=== PATIENT | female | born 1950 | race Caucasian/White ===

== ENCOUNTER 2016-07-08 13:26 | Inpatient (IN) | payer MEDICARE ==
--- NOTE | ~2016-07-08 | CN ---
Consultation Report [facility] [address] [place]. [address] NAME: GAURANG FLORES : 46 STATUS : DIS IN PAT#: [id number] AGE: 66 ADM/REG DATE : 07/08/16 MR#: [id number] REPORT SERV DATE: 07/15/16 DICTATED BY: DATE: REPORT STATUS : Draft TRANSCRIBED BY: MODL DATE: 07/15/16 NEUROLOGY CONSULTATION DATE OF CONSULTATION: 07/15/2016 REASON FOR CONSULT: Acute unresponsiveness. HISTORY OF PRESENT ILLNESS: This is a 66-year-old female who presented to [facility] on 07/08/2016 secondary to shortness of breath as well as chest tightness. The patient subsequent to hospital admission has had multiple issues including cardiopulmonary resuscitation as well as aspiration required intubation. The patient in addition was also noted to have right femoral hematoma requiring exploratory surgery as well as repair. The patient was intubated overnight on 07/14/2016 secondary to aspiration having sedation off on the morning of 07/15/2016, and afterwards was unresponsive with unreactive pupils. No movement of extremities. No response to painful stimulation. Patient prior to the hospitalization was not noted to have any prior illness, also was not noted to have any prior fever, chills, nausea, vomiting, or recent illness. PAST MEDICAL HISTORY: Significant for history of hypertension as well as arrhythmia with loop recorder as well as previous pericardial effusion; type 2 diabetes, insulin-dependent; as well as hyperlipidemia; irritable bowel syndrome; and ulcerative colitis. The patient does have a history of prior CVA as well as chronic kidney disease. The patient was noted to have no tobacco, alcohol, or recreational drug usage. FAMILY HISTORY: Significant for hypertension, diabetes, coronary artery disease. REVIEW OF SYSTEMS: Unable to be obtained secondary to patient's current mental status. ALLERGIES: THE PATIENT WAS NOTED TO HAVE ALLERGY TO MORPHINE, KEFLEX, WELL HEPARIN. MEDICATIONS: Currently consist of Cardizem, Colazal, Diflucan, Dulera, Flonase, Florastor, vancomycin, Levemir, Merrem, MiraLAX, Mycostatin, Neurontin, NovoLog, Protonix, Proventil, Spiriva, vitamin C, and Zocor. The patient is not currently on sedation. PHYSICAL EXAMINATION: VITAL SIGNS: Overnight patient was noted to have vital signs with T-max of 103.4, heart rate of 85-121, respiration of 18 to 27, and blood pressure of 82 to 135 over 41 to 63. GENERAL: The patient is well developed, well nourished, in no acute distress. CARDIOVASCULAR: Regular rate and rhythm. No carotid bruits were otherwise auscultated. PULMONARY: Diffuse rhonchi were auscultated. Coarse breath sound was also auscultated. NEUROLOGIC: Generally, the patient is intubated, not on sedation, was comatose, nonverbal, not following commands. Cranial nerves 2 to 12. Pupil 4 mm and nonreactive. At the time of evaluation, no blink to threat. No corneal reflex was otherwise detected. No grimace to Consultation Report [place] [id number] [facility] [place]. [address] NAME: GAURANG FLORES : 46 STATUS : DIS IN PAT#: [id number] AGE: 66 ADM/REG DATE : 07/08/16 MR#: [id number] REPORT SERV DATE: 07/15/16 DICTATED BY: DATE: REPORT STATUS : Draft TRANSCRIBED BY: MODL DATE: 07/15/16 noxious stimulation. Bilateral jaw with the patient demonstrating no horizontal eye movement or oculocephalic maneuver. The patient demonstrated no gag reflex at the time of evaluation. No deep tendon reflex was obtained in all four extremities with the patient demonstrating no grimace, withdrawal, or posturing to noxious stimulation in all four extremities. Gait and cerebellar examination is unable to be obtained secondary to patient's current mental status. LABORATORY STUDIES: Demonstrate white blood cell count of 0.4, hemoglobin of 9.1, hematocrit of 25.7, platelet count of 31. Sodium 144, potassium 3.4, chloride 108, bicarb 24, BUN of 60, creatinine of 2.66, glucose of 105, calcium of 6.4, magnesium 2.2. The patient procalcitonin level was 84.26. CT scan of the brain demonstrated no acute process. CT angiogram of the brain, head and neck demonstrated no significant stenosis or clot. IMPRESSION: Acute unresponsiveness, etiology is unclear. The patient was noted to have recent intubation secondary to aspiration pneumonia and is currently off sedation since the morning of hospital evaluation. The patient still remains unresponsive despite being off sedation for several hours with the patient noted to have unreactive pupil. CT scan not otherwise demonstrated no acute process. RECOMMENDATION: 1. Hold sedation. 2. EEG pending. 3. We will obtain laboratory study. 4. Further recommendation pending EEG study. [facility]/MODL Jacob Ochoa MD / [id number] CC: MD Haja Young Jr., M.D.
--- NOTE | ~2016-07-08 | OP ---
Record Of Operation [facility] [address] [place]. [address] NAME: GAURANG FLORES : 48 STATUS : DIS IN PAT#: [id number] AGE: 66 ADM/REG DATE : 07/08/16 MR#: [id number] REPORT SERV DATE: 07/26/16 DICTATED BY: BERNARD CALIXTO JR. DATE: 07/26/16 REPORT STATUS : Draft TRANSCRIBED BY: MODL DATE: 07/26/16 DATE OF PROCEDURE: 07/12/2016 ROOM NUMBER: [id number]. REFERRING PHYSICIANS: Dr. Rosy Corrales; Dr. Haja Christina; and Dr. Chad Fowler. INDICATION: [id number] myocardial infarction. ACCESS: Right femoral artery. EQUIPMENT: A 6-Icelandic Marcello left heart catheter 4.0, angled pigtail catheter 4.0. CONTRAST: 90 mL of intravenous Isovue 1.4 minutes for fluoro time 278 mGy. ESTIMATED BLOOD LOSS: 5 mL. DISPOSITION: Cardiac short-stay. 20 mL of 1% subcutaneous Xylocaine to the right femoral artery. COMPLICATIONS: None. PROCEDURE IN DETAIL: After informed consent was obtained, the patient was taken to the cardiac catheterization lab where IV conscious sedation was administered, then local anesthesia to the right femoral artery region. Next after using modified Seldinger technique to place a 6-Icelandic diagnostic sheath which was flushed and secured. A Marcello left catheter 4.0 was advanced over the wire under fluoroscopy to the ostium of the left main coronary artery whereupon cineangiography was performed in the CZECH cranial, CZECH caudal, AP caudal, KNIGHT caudal, KNIGHT cranial, and AP cranial views. This catheter was then exchanged over wire under fluoroscopy for a Marcello right catheter which was advanced to the ostium of the right coronary artery. Cineangiography was performed in the CZECH and AP cranial views. This catheter was then exchanged for an angled pigtail catheter which was advanced over wire under fluoroscopy to the aortic valve and gently prolapsed across the aortic valve into the left ventricle. Cineangiography was performed in the KNIGHT view approximately 36 mL. Hemodynamic tracings were obtained in the body of the left ventricle and then across the aortic valve during pullback in the aorta. After the procedure, hemostasis was achieved with manual pressure. ANGIOGRAPHY: 1. Left main coronary artery normal approximately 3 mm in diameter. 2. Left anterior descending coronary artery: Moderate-sized vessel bifurcating early into a long narrow diffusely diseased first diagonal coronary artery with approximately 75% stenosis in the proximal third. The left anterior descending coronary artery then Record Of Operation [place] [id number] [facility] [place]. [address] NAME: GAURANG FLORES : 46 STATUS : DIS IN PAT#: [id number] AGE: 66 ADM/REG DATE : 07/08/16 MR#: [id number] REPORT SERV DATE: 07/26/16 DICTATED BY: BERNARD CALIXTO JR. DATE: 07/26/16 REPORT STATUS : Draft TRANSCRIBED BY: SONY DATE: 07/26/16 proceeds with a hazy 65% stenosis after the first septal supervisor small appliance assembly. This vessel then proceeds to the crux as a long narrow vessel approximately 2.2 mm to 2.5 mm in diameter to 2 mm at the crux. 3. Circumflex coronary artery: Large, dominant vessel with a 70% to 75% eccentric hazy stenosis after the first obtuse marginal vessel. After the second obtuse marginal vessel, the distal circumflex bifurcates into a posterolateral and left PDA. The left PDA demonstrates an 80% stenosis at its origin. 4. Right coronary artery: Small vessel, nondominant with 50% proximal stenosis after the conus branch. This vessel bifurcates into an acute marginal and distal right RV marginal. VENTRICULOGRAM: Preserved left ventricular systolic function with ejection fraction of approximately 60% with 2+ left ventricular hypertrophy and 1+ mitral insufficiency. Of note, there was significant LVH at the apex with catheter entrapment suggestive of an apical hypertrophic variety. HEMODYNAMICS: Aortic minimum diastolic pressure 56 mmHg. Aortic peak systolic pressure 143 mmHg. Aortic mean pressure 91 mmHg. Left ventricular end-diastolic pressure 17 mmHg. Left ventricular peak systolic pressure 144 mmHg. There is no gradient on withdrawal of the catheter from the left ventricle to the aorta. IMPRESSION: 1. Multivessel equivocal disease in the left dominant vessel. 2. Severe left ventricular hypertrophy with suggestion of hypertrophic variant with severe apical hypertrophy. 3. Elevated left ventricular end-diastolic pressure. PLANS AND RECOMMENDATIONS: Referral for CT surgical consultation. JOSÉ/SONY Bernard Calixto Jr., M.D. / [id number] CC: MD Haja Young Jr., M.D. Cristina Florea, M.D.
--- NOTE | ~2016-07-08 | OP ---
Record Of Operation [facility] [address] [place]. [address] NAME: GAURANG FLORES : 46 STATUS : ADM IN PAT#: [id number] AGE: 66 ADM/REG DATE : 07/08/16 MR#: [id number] REPORT SERV DATE: 07/13/16 DICTATED BY: JASMIN MARX DATE: 07/13/16 REPORT STATUS : Draft TRANSCRIBED BY: MODRobin DATE: 07/13/16 DATE OF PROCEDURE: 07/13/2016 PULMONARY CRITICAL CARE PROCEDURE NOTE PROCEDURE: Insertion of a left femoral triple lumen catheter. CONSENT: Emergent. ANESTHETIC: 1% lidocaine without epi, approximately 2 mL instilled intradermally during the procedure. CONSENT: Emergent due to hypovolemic shock with a systolic blood pressure in the low 60s. PROCEDURE IN DETAIL: As part of code blue effort, a left femoral triple lumen was inserted for better venous access. The patient had a 22-gauge in her arm, which was infiltrated. She was prepped and draped in sterile fashion using maximal sterile barriers including hat, gown, mask with eye protection, gloves and sterile drape. Chlorhexidine was used to sensitize the area overlying the left femoral vein and a finder needle was used to aspirate very dark red blood. Subsequently, a guidewire was inserted to a depth of approximately 20 cm and sequential dilator was passed over the guidewire after making a small karolyn with an 11 blade scalpel using Seldinger technique and finally 20 cm Arrow Blue catheter was passed over the guidewire and had excellent blood aspiration and flush all three ports, which were covered with sterile caps. Line was secured to the skin with suture material and all sharps were disposed off in the appropriate area. ESTIMATED BLOOD LOSS: Less than 1 mL. IMMEDIATE COMPLICATIONS: None. Please see separate documentation for additional critical care provided to Ms Flores this morning. JIMMIE/SONY Jasmin Marx MD / [id number] CC: Jose Chan Jr, MD Charles Crump Jr., M.D.
--- NOTE | ~2016-07-08 | OP ---
Record Of Operation [facility] [address] [place]. [address] NAME: GAURANG FLORES : 46 STATUS : DIS IN PAT#: [id number] AGE: 66 ADM/REG DATE : 07/08/16 MR#: [id number] REPORT SERV DATE: 07/15/16 DICTATED BY: COLE CAT DATE: 07/15/16 REPORT STATUS : Draft TRANSCRIBED BY: MODL DATE: 07/15/16 DATE OF PROCEDURE: 07/15/2016 PROCEDURE PERFORMED: Right IJ Vas-Cath placement under ultrasound guidance. ANESTHETIC: 1% local. PREPROCEDURE DIAGNOSES: Sepsis and eorwg-cz-ahtwhhf renal failure. POSTPROCEDURE DIAGNOSES: Sepsis and ldicm-qa-xhbzral renal failure. PROCEDURE PERFORMED: As above. BLOOD LOSS: Minimal. COMPLICATIONS: None. DESCRIPTION OF PROCEDURE: The patient was in the ICU in supine position in her ICU bed. The right neck was prepped and draped in a sterile fashion. A time-out was performed; identified the correct patient, procedure, and site. We began by using ultrasound to identify the right IJ vein that was compressible and free of thrombus. We anesthetized the skin and then accessed the vein under ultrasound guidance. Once we had access, wire was passed down into the cardiac chambers. The needle was removed. We widened the entry site with 11-blade scalpel. We dilated the entry site using percutaneous dilators. We then advanced the 15 cm long PermCath over the wire into position, after which we removed the wire and dilator. The ports were aspirated and flushed with ease, end caps were placed. The catheter was secured to the skin using interrupted silk suture. Sterile dressing was applied. The patient tolerated the procedure well. She was left in the ICU in critical condition. TONY/SONY Cole Cat MD / [id number] CC: MD Haja Young Jr., M.D.
--- NOTE | ~2016-07-08 | OP ---
Record Of Operation [facility] [address] [place] [address] NAME: GAURANG FLORES : 46 STATUS : ADM IN PAT#: [id number] AGE: 66 ADM/REG DATE : 07/08/16 MR#: [id number] REPORT SERV DATE: 07/15/16 DICTATED BY: ANISH BUCKLEY DATE: 07/15/16 REPORT STATUS : Draft TRANSCRIBED BY: MODL DATE: 07/15/16 DATE OF PROCEDURE: 07/15/2016 PROCEDURE: Intubation. REASON: Hypoxic respiratory failure. The patient is a full code. PROCEDURE: The patient was pre-oxygenated with 100% oxygen and monitored closely during intubation. She got a total 3 mL of Diprivan and 20 mg of IV etomidate. A GlideScope was used with a #3 blade. Vocal cords were well visualized and appeared normal. #7.5 endotracheal tube was placed on the first attempt without any difficulty. O2 saturation maintained above 92%. Bilateral breath sounds were heard and CO2 sensor changed appropriate color from blue to yellow. /MODL Anish Buckley M.D. / [id number] CC: Haja Christina Jr., M.D.
--- NOTE | ~2016-07-08 | CN ---
Consultation Report [facility] [address] [place]. [address] NAME: GAURANG FLORES : 46 STATUS : ADM IN PAT#: [id number] AGE: 66 ADM/REG DATE : 07/08/16 MR#: [id number] REPORT SERV DATE: 07/13/16 DICTATED BY: JASMIN MARX DATE: 07/13/16 REPORT STATUS : Draft TRANSCRIBED BY: MODL DATE: 07/13/16 PULMONARY CRITICAL CARE MEDICINE DOCUMENTATION ON CODE BLUE. DATE OF CONSULTATION: This documentation will cover both Code Blue event as well as subsequent critical care time provided to Gaurang Flores on the morning of 07/13/2016. Approximately 6:50 a.m., nursing staff on the [address] [place] [address] Telemetry Unit noted Ms. Flores in 5109 to be minimally responsive with apneic respirations and marked pallor. She had undergone a left heart cath the previous day, and after careful inspection, she was noted to have a large hematoma at the right femoral access site. Pressure was held and a Code Blue was called as nursing staff initially thought that she was beginning to jolynn down. Code team arrived a short time later and actually noted her to have a pulse, although she was markedly hypotensive with her initial noninvasive blood pressure cycled at 63 systolic with marked tachycardia. She had marked conjunctival pallor on my examination and was fairly lethargic. She only had a 22-gauge peripheral IV in her right arm, which appeared to be infiltrated and thus the decision to insert a triple-lumen catheter under emergent conditions for better venous access and infusion of blood products and fluids. Please see my separate dictation for procedure details. After venous access was obtained, normal saline boluses and packed red blood cells were infused and she did improve her blood pressure to the 130 systolic with better skin color and more alertness. She was able to converse and answer some questions. She was transferred to CCU bed 13 and was started on Levophed infusion for maintenance of blood pressure. She remained clinically stable for approximately one hour following transfer to the CCU around 7:30 a.m., and around 8:30 a.m., was contacted again by nursing staff to assess for worsening encephalopathy, worsening lethargy, and return of her hypotension at this time in the mid 80s systolic. She was also more pale and her hematoma was enlarging. Dr. Phipps from Vascular Surgery was consulted as more fluid and blood were administered. A kwxqe-zz-uhoe ultrasound of her heart showed hyperdynamic LV with limited ventricular filling bilaterally and her IVC was completely collapsed. Her jugular veins were also noted to be very collapsible with her respiratory cycle. She was ultimately taken to the operating room with Dr. Phipps for exploration and potential control of bleeding from the femoral access site on the right and Dr. Calixto was made aware of all proceedings. She did receive protamine this morning and her heparin drip was held prior to her transfer to the CCU as part of her code event. Her family including her daughter and son-in-law were updated following the events of the morning and we will continue to follow her closely in the CCU. JIMMIE/SONY Jasmin Marx MD Consultation Report [address] [address] NAME: GAURANG FLORES : 46 STATUS : ADM IN PAT#: [id number] AGE: 66 ADM/REG DATE : 07/08/16 MR#: [id number] REPORT SERV DATE: 07/13/16 DICTATED BY: JASMIN MARX DATE: 07/13/16 REPORT STATUS : Draft TRANSCRIBED BY: SONY DATE: 07/13/16 / [id number] CC: Jose Chan Jr, MD Charles Crump Jr., M.D.
--- NOTE | ~2016-07-08 | CN ---
Consultation Report [facility] [address] [place]. [address] NAME: GAURANG FLORES : 46 STATUS : ADM IN PAT#: [id number] AGE: 66 ADM/REG DATE : 07/08/16 MR#: [id number] REPORT SERV DATE: 07/12/16 DICTATED BY: CHAD MUÑOZ DATE: 07/12/16 REPORT STATUS : Draft TRANSCRIBED BY: MODL DATE: 07/12/16 CONSULTATION NOTE DATE OF CONSULTATION: 07/12/2016 REASON FOR CONSULTATION: Three-vessel coronary artery disease, consideration for urgent coronary artery bypass grafting in the context of unstable anginal symptoms. CHIEF COMPLAINT: Chest pain, shortness of breath. HISTORY OF PRESENT ILLNESS: This is a 66-year-old female with complex medical history including severe obstructive sleep apnea, rheumatoid arthritis, and Crohn's, for which she takes immunosuppressive therapy, three prior CVAs, pulmonary interstitial fibrosis, managed by Javier Granger MD, insulin-dependent diabetes mellitus, pericardial effusion, that is chronic, pulmonary nodules and masses. She reports, recent progressive fatigue and chest tightness or pressure, as well as breathlessness and dyspnea on exertion. This has gradually worsened and at the end of last week, she went to see her primary care provider, Dr. Christina. At that time, his nurse practitioner, referred her to the emergency department, and she underwent further evaluation for her symptoms. Her EKG showed normal sinus rhythm. Troponin I was not elevated at 0.02. She had myocardial perfusion imaging and experienced 7/10 chest pain with this with decline in her EF to 22% and this was graded a high risk study showing anterolateral and apical reversible defects. She saw Dr. Fowler, and today underwent coronary arteriogram by Dr. Calixto, which demonstrated significant flow-limiting coronary artery disease in the right coronary artery with distal chronic total occlusion, and significant circumflex and left anterior descending coronary artery stenosis as well. We were asked to see for consideration of urgent coronary artery bypass grafting and this was discussed with the patient and her family present in the room today. PRIOR MEDICAL HISTORY: Significant for chronic kidney disease, stage 2-3, interstitial fibrosis, insulin-dependent diabetes mellitus, prior CVA x3, pericardial effusion, rheumatoid arthritis, Crohn's disease, severe obstructive sleep apnea, hypertension, hyperlipidemia, and lung nodules or masses. PRIOR SURGICAL HISTORY: Significant for previous exploratory laparotomy and colostomy with followup reversal of colostomy. She has also had prior abdominal hernia repair, cholecystectomy, partial hysterectomy, previous right shoulder surgery, implantable loop recorder placement, skin cancer excision, UPPP for sleep apnea in 1997, EGDs, and colonoscopies. ALLERGIES: SIGNIFICANT FOR MORPHINE, WHICH CAUSES THROAT SWELLING, SHE GETS THRUSH AFTER TAKING BACTRIM OR SULFA AND ALSO EXPERIENCES THIS WITH KEFLEX. HOME MEDICATIONS: Significant for albuterol inhaler, Fosamax, aspirin, Astepro nasal spray, B complex with C tablets, Colazal tablets t.i.d., calcium with vitamin D, vitamin D tablets, Consultation Report [place] [id number] [facility] [place]. [address] NAME: GAURANG FLORES : 46 STATUS : ADM IN [facility]#: [id number] AGE: 66 ADM/REG DATE : 07/08/16 MR#: [id number] REPORT SERV DATE: 07/12/16 DICTATED BY: CHAD MUÑOZ DATE: 07/12/16 REPORT STATUS : Draft TRANSCRIBED BY: SONY DATE: 07/12/16 coenzyme Q10, vitamin B12, diclofenac topical gel, diltiazem 180 mg daily, Raeann 180 daily, Flonase nasal spray daily, fluticasone/salmeterol 500/50 inhaled twice daily, folic acid, furosemide, gabapentin, hydrochlorothiazide, hydroxychloroquine, insulin, losartan/hydrochlorothiazide, multivitamins, omega-3 fatty acids, pantoprazole, prednisone 10 mg daily, Zantac 300 every evening, Rituxan IV infusion, Zocor, tramadol, Incruse Ellipta inhaler, Phazyme, IBgard capsule, probiotics, and OptiFlex. SOCIAL HISTORY: She is , denies any use of tobacco or alcohol or illicit drugs. FAMILY HISTORY: Significant for hypertension, diabetes, and coronary artery disease. REVIEW OF SYSTEMS: GENERAL: Positive for exercise intolerance, diminished energy, and easy fatigability. She denies any recent fevers, chills, or night sweats. RESPIRATORY: Positive for shortness of breath. Negative for cough or wheezing or chronic cough. Negative for hemoptysis. CV: Negative for palpitations. Positive for chest tightness and pressure. Positive for heart murmur. GI: Positive for gastroesophageal reflux disease and as above. : Positive for chronic kidney disease and prior urinary tract infections. She is followed by Dr. Fu for her chronic kidney disease. MUSCULOSKELETAL: Followed by Dr. Burrows for her rheumatoid arthritis and osteoarthritis. NEURO: Positive for prior strokes with residual difficulty with memory and mild left-sided weakness that resolved with inpatient rehabilitation. HEME/ONC: As above. No history of blood clots. She does bruise easily secondary to her chronic steroid use. ENDOCRINE: Positive for insulin-dependent diabetes mellitus. INTEGUMENTARY: Positive for easy bruising, hair loss. Otherwise, negative or as above. PHYSICAL EXAMINATION: GENERAL: This is a very pleasant, 66-year-old female with cushingoid appearance. Her height is 154.94 cm, weight 62.73 kg. VITAL SIGNS: Blood pressure 153/70, temperature 98.4, pulse 61, respirations 18, saturation 98% on room air. HEENT: Normocephalic, atraumatic. She has fine textured hair. Pupils are equal, round, reactive to light and accommodation, sclerae clear, conjunctivae pink. Oral and buccal mucosa pink and moist with whitish plaques on the tongue. Mallampati class 3 airway. NECK: Supple. No restricted range of motion, she has right carotid bruit versus radiated murmur. No jugular venous distention. CHEST: She has Velcro crackles bilaterally to auscultation posteriorly and in the bases. No rub. Mild cervicothoracic kyphosis. CV: Regular rate and rhythm with aortic systolic murmur. She has palpable and symmetric central and peripheral pulses, no clubbing or cyanosis. She has 2+ pitting edema of the lower extremities that extends upward past her knees. ABDOMEN: Soft, obese, striated, nontender. She has normoactive bowel sounds. No Consultation Report [address] [place]. [address] NAME: GAURANG FLORES : 46 STATUS : ADM IN [facility]#: [id number] AGE: 66 ADM/REG DATE : 07/08/16 MR#: [id number] REPORT SERV DATE: 07/12/16 DICTATED BY: CHAD MUÑOZ DATE: 07/12/16 REPORT STATUS : Draft TRANSCRIBED BY: MODL DATE: 07/12/16 hepatosplenomegaly. /RECTAL: Declined. MUSCULOSKELETAL: Mild kyphosis. No scoliosis. No asymmetry and Gonzalo's nodes of the phalanges are noted. NEUROLOGIC: She is alert and oriented to day, date, place, and situation. Speech is clear, fluent, without focal neurologic deficits. No tremors. She ambulates without assistance. SKIN, HAIR, AND NAILS: She has significant ecchymoses and purpura over both hands and arms, purpuric spots over the anterior chest and annular pigmented lesions of the lower extremities. DATA: Her coronary arteriogram today showed 3-vessel flow-limiting coronary artery disease. Echocardiogram indicated mild aortic stenosis, aortic sclerosis, no other significant valvulopathy. Her ejection fraction was 60% by echo. There was moderate pericardial effusion that was loculated posterolaterally. EKG showed sinus rhythm. Her hemoglobin A1c was 6.1. Prior MRAs and carotid ultrasounds did not show any significant carotid disease. Her current labs, sodium is 134, potassium 3.6, chloride 99, CO2 of 23, BUN 66, creatinine 1.5 and nonfasting glucose 217. Her total cholesterol was elevated at 222, HDL was 62, LDL elevated at 107, triglycerides elevated at 265. She had recent voided urinalysis that was significant for moderate leukocyte esterase and bacteria in the urine. There was glucosuria. Her CBC does not show any elevated white count, she does have a thrombocytopenia of 121, hemoglobin is 10.2, hematocrit 28.9%. IMPRESSION: Three-vessel flow-limiting coronary artery disease in a 66-year-old female with complex medical history and comorbidities. We talked with her and her today about possible coronary artery bypass grafting, indications, benefits, and serious risks, which include, but are not limited to, things such as bleeding, need for blood or blood product transfusion and their attendant risks, damage to the kidneys including kidney failure and dialysis, damage to the liver, the lungs, heart attack, stroke, abnormal heart rhythm, infection, mediastinitis, and even . Using Society of Thoracic Surgeons database, risk of mortality is predicted at 4.738%, morbidity or mortality of 31.959% which are elevated. This was discussed with the patient and family today and she indicates her understanding. Tentative plan is for surgical revascularization later this week. We appreciate the opportunity to participate in this pleasant lady's care. JUAN FRANCISCO/SONY Chad Muñoz NBing / [id number] CC: Charisse Eisenberg M.D. Consultation Report [address] [place]. [address] NAME: GAURANG FLORES JOE : 46 STATUS : ADM IN PAT#: [id number] AGE: 66 ADM/REG DATE : 07/08/16 MR#: [id number] REPORT SERV DATE: 07/12/16 DICTATED BY: CHAD MUÑOZ DATE: 07/12/16 REPORT STATUS : Draft TRANSCRIBED BY: MODL DATE: 07/12/16 Haja Christina Jr., M.D.
--- NOTE | ~2016-07-08 | OP ---
Record Of Operation [facility] [address] [place]. [address] NAME: GAURANG FLORES : 46 STATUS : ADM IN PAT#: [id number] AGE: 66 ADM/REG DATE : 07/08/16 MR#: [id number] REPORT SERV DATE: 07/13/16 DICTATED BY: CHAD BROWN DATE: 07/13/16 REPORT STATUS : Draft TRANSCRIBED BY: MODL DATE: 07/13/16 DATE OF PROCEDURE: 07/13/2016 PREOPERATIVE DIAGNOSIS: Status post right cardiac cath with two episodes of hypotension the morning of surgery with ecchymosis of the right thigh. POSTOPERATIVE DIAGNOSIS: Status post right cardiac cath with two episodes of hypotension the morning of surgery with ecchymosis of the right thigh. FINDINGS: Moderate-sized hematoma of the right groin with bleeding from the femoral stick site with no evidence of retroperitoneal hematoma. SURGERY PERFORMED: Exploration right femoral artery and primary repair using 5-0 Prolene suture. DESCRIPTION OF PROCEDURE: The patient was brought to the operating suite emergently after having two episodes of major hypotension the morning of surgery. The first one occurring two or three hours before, which she responded to fluids and resuscitation. The patient was then stable followed by another episode of significant hypotension. After the second episode and resuscitation, she was brought to the operating suite. She was found to have a FemoStop on the femoral artery. There was a large hematoma in the groin. She was resuscitated and then placed under general endotracheal anesthesia. Right groin prepped and draped in sterile fashion. A vertical incision made over the femoral vessels, dissection carried down through the skin and subcutaneous tissue. The femoral artery encircled at the inguinal ligament distally, dissection carried out down to the stick site that was bleeding from the arterial portion. This was actually in the proximal SFA. This was isolated with vessel loops and then repaired using interrupted 5-0 Prolene suture. Exploration of the area revealed a hematoma in the thigh, which was moderate at best. Dissection underneath the inguinal ligament showed no extension into the retroperitoneal space as suspected preoperatively. With this finding, a NAYE drain was placed into the wound. The wound was then closed with 2-0 and 3-0 Vicryl, and skin closed with latoya. Dry dressings were applied. Due to her blood transfusion requirements, it was felt that there was possibly some sort of intraperitoneal bleeding. She was on a regular operating room table so not conducive to arteriography. Therefore she was taken to CT scan while under general anesthesia, where she had a CT of the abdomen and pelvis with contrast. The CT scan showing no evidence of intraabdominal or pelvic bleeding. Therefore the patient was then taken to the intensive care unit to monitor and for extubation. The estimated blood loss of this operation is 100 mL. She was stable during the surgery and afterwards, and again went back to the CCU under stable condition. MG/MODL Chad Brown M.D. Record Of Operation [address] [address] NAME: GAURANG FLORES : 46 STATUS : ADM IN [facility]#: [id number] AGE: 66 ADM/REG DATE : 07/08/16 MR#: [id number] REPORT SERV DATE: 07/13/16 DICTATED BY: CHAD BROWN DATE: 07/13/16 REPORT STATUS : Draft TRANSCRIBED BY: SONY DATE: 07/13/16 / [id number] CC: Jose Chan Jr, MD Charles Crump Jr., M.D.
--- NOTE | ~2016-07-08 | EEG ---
Electroencephalogram [facility] [address] [place]. [address] NAME: GAURANG FLORES : 46 STATUS : DIS IN PAT#: [id number] AGE: 66 ADM/REG DATE : 07/08/16 MR#: [id number] REPORT SERV DATE: 07/15/16 DICTATED BY: DATE: REPORT STATUS : Draft TRANSCRIBED BY: MODL DATE: 07/15/16 NEUROLOGY EEG REPORT CLINICAL INDICATIONS: Comatose state. DESCRIPTION: This EEG was obtained using 10/20 electrode placement system. During the EEG study, patient was noted to have generalized slowing with periods of attenuated background, followed by periods of activity with predominant occipital rhythm of roughly 3-4 hertz. The patient was noted to have photic stimulation, but no driving response. Hyperventilation was not performed secondary to the patient's intubated status. The alternating attenuated background followed by activity was noticed throughout the EEG study. The patient remains comatosed during the entire EEG study. No clear electrographic seizure was otherwise noted during the EEG study. No clear focal abnormality was noted during the EEG study. INTERPRETATION: This EEG study obtained entirely during comatose state may be considered abnormal secondary to the presence of generalized slowing as well as alternating periods of attenuated background activity followed by brain activity concerning for possible burst suppression type of pattern, concerning for severe metabolic encephalopathy versus toxic or medication-induced encephalopathy versus generalized cerebral insults or injury. Clinical correlation is recommended. [facility]/MODL Jacob Ochoa MD / [id number] CC: MD Haja Young Jr., M.D.
--- NOTE | ~2016-07-08 | HP ---
History And Physical [place] [address] [place]. [address] NAME: GAURANG FLORES : 46 STATUS : ADM IN PAT#: [id number] AGE: 66 ADM/REG DATE : 07/08/16 MR#: [id number] REPORT SERV DATE: 07/08/16 DICTATED BY: ADRIENNE ELLISON DATE: 07/08/16 REPORT STATUS : Draft TRANSCRIBED BY: MODL DATE: 07/08/16 DATE OF ADMISSION: 07/08/2016 CHIEF COMPLAINT: Shortness of breath and chest tightness. HISTORY OF PRESENT ILLNESS: Obtained from the patient, the patient's family present at bedside and emergency room documents. Also, prior medical records available to us were thoroughly reviewed. According to the information available, the patient is a pleasant 66- year-old white woman with a complex past medical history, which includes pulmonary fibrosis, diabetes type 2, ulcerative colitis and chronic kidney disease, who presents to the emergency room after being seen in primary care provider's office with the above complaints of increasing shortness of breath and chest tightness/chest pain. The patient stated that she has been feeling short of breath for a week with increased dyspnea on exertion and increased pedal edema. The pedal edema, actually started several months ago, when she stated that some of her medications were changed at the nephrology's office. Nevertheless, for the last three to four days, she started experiencing chest tightness/heaviness in the upper part of the chest, precordial. No radiation, with increasing dry cough and increasing fatigue, especially with minimal exertion. The cough was nonproductive and dry. No fever or chills reported. No contact with sick person reported. She was apparently treated recently for urinary tract infection with antibiotics by her primary care provider, and she states that she had thrush since finishing the antibiotic several days ago. She has not had any new change in her prednisone doses or schedule. In the emergency room, the patient was investigated, was noticed to be in mild respiratory distress due to shortness of breath with benign cardiovascular markers and EKG. Due to her presentation and known medical history, she was referred to the hospitalist service for further management and evaluation. PAST MEDICAL HISTORY: As above. Significant for hypertension. Significant for reported arrhythmia with a loop recorder monitor which she wears for several years now, but apparently no significant documented malignant arrhythmias noticed. History of prior reported pericardial effusion by prior CT scan done during prior admission. Uncertain if any other followup was performed since. History of diabetes type 2, insulin dependent. History of hyperlipidemia. History of irritable bowel syndrome/ulcerative colitis. History of GERD. History of prior cerebrovascular disease with prior CVA x3. History of chronic steroid usage. History of chronic immunosuppressive therapy. History of apparent chronic kidney disease, stage 2 to stage 3, followed up by Nephrology, Dr. Fu. PAST SURGICAL HISTORY: Significant for colon surgery due to apparent ruptured colon with a colostomy and then reversal of colostomy. History of abdominal hernia repair afterwards. History of cholecystectomy, partial hysterectomy, right shoulder surgery, loop recorder monitor placement. History of several skin cancer removal. History of UPPP for sleep apnea in 1997. History of several EGDs and colonoscopies. SOCIAL HISTORY: She is , lives with her family. Denies tobacco abuse. Denies alcohol abuse. Denies illicit recreational drug abuse. FAMILY HISTORY: Significant for hypertension, diabetes, and coronary artery disease. History And Physical [address] [address] NAME: GAURANG FLORES : 46 STATUS : ADM IN [facility]#: [id number] AGE: 66 ADM/REG DATE : 07/08/16 MR#: [id number] REPORT SERV DATE: 07/08/16 DICTATED BY: ADIRENNE ELLISON DATE: 07/08/16 REPORT STATUS : Draft TRANSCRIBED BY: SONY DATE: 07/08/16 REVIEW OF SYSTEMS: As per H and P, otherwise negative in all review of systems. Please note, a comprehensive review of system was obtained and pertinent positives are including in the H and P. PHYSICAL EXAMINATION: GENERAL: Pleasant, co-operant, but pale, in mild distress due to shortness of breath. VITAL SIGNS: Upon arrival in the emergency room, showed blood pressure 139/66, pulse 71, respiratory rate 18, temperature 98.7, oxygen saturation 97% on room air. HEENT: Pupils equal, round, and reactive to light. Extraocular movements intact. Throat, mild erythema with oral thrush present. No signs of tenderness. Atraumatic. NECK: Supple. No JVD. No bruits. No thyromegaly. No lymph nodes. LUNGS: Bilateral air entry with bibasilar crackles. A few scattered rales bilateral. No significant wheezing noticed. HEART: Positive S1, S2. Regular rate and rhythm. Positive mitral regurgitation. Murmur at the apex. PMI nondisplaced by palpation. ABDOMEN: Positive bowel sounds. Soft, nontender. No guarding. No hepatosplenomegaly. EXTREMITIES: Decreased range of motion. Osteoarthritic changes. No clubbing, no cyanosis. +2 pitting edema bilaterally up to the knees. No calf tenderness noticed. +1 pulses. NEUROLOGIC: Alert and oriented x3. Grossly nonfocal. Cranial nerves 2 through 12 grossly intact. Motor strength 5/5, symmetrical bilaterally. Deep tendon reflexes 2/2, symmetrical bilaterally. BACK: With decreased range of motion. No focal localized tenderness. No CVA tenderness. SKIN: No bruising or rashes. No lacerations. SIGNIFICANT LABORATORY DATA: Chest x-ray (personal reading) showed chronic interstitial changes. No acute infiltrate. EKG (personal reading) showed normal sinus rhythm at 66 beats per minute. No acute ST elevation. Basically a normal EKG. Sodium 139, potassium 3.6, chloride 101, bicarb 33, BUN 47, creatinine 1.48, and glucose 145. White cell count 6, hemoglobin 12 with a platelet count 99. BNP 59 which is within normal limits. Urinalysis negative for signs of infection. Troponin I less than 0.02. Liver function tests basically within normal limits. ASSESSMENT AND PLAN AND PROBLEM LIST: The patient is a pleasant 66-year-old white woman, admitted with dyspnea on exertion, acute kidney injury. IMPRESSION: 1. Pulmonary with:. a. Dyspnea on exertion. Likely multifactorial. Possible pulmonary etiology. Doubt infectious. Possible cardiac etiology. We are going to try to obtain the records from patient's manufacturing engineer machining Dr. Javier Granger and we are going to continue bronchodilator therapy, oxygen supplementation. Provide stress dose of steroids considering possible flare up of her known pulmonary fibrosis, possible chronic obstructive pulmonary disease. History And Physical [address] [address] NAME: GAURANG FLORES : 46 STATUS : ADM IN [facility]#: [id number] AGE: 66 ADM/REG DATE : 07/08/16 MR#: [id number] REPORT SERV DATE: 07/08/16 DICTATED BY: ADRIENNE ELLISON DATE: 07/08/16 REPORT STATUS : Draft TRANSCRIBED BY: SONY DATE: 07/08/16 b. Pulmonary fibrosis. c. Obstructive sleep apnea. d. Chronic obstructive pulmonary disease. 2. Acute kidney injury on chronic kidney disease, stage 2. Likely close to her baseline. We are going to obtain a Nephrology consultation as patient states that some of her symptoms started after the medications were changed by Dr. Fu, Nephrology. Strict I's and O's and daily weights. Consider Calvin catheter placement. 3. Cardiovascular with:. a. Chest pain/chest tightness. b. Hypertension, essential hypertension. c. Bilateral lower extremity edema. For all the above, we are going to continue to rule out and process CK and troponin I, continue to monitor EKG. We will obtain a 2D echo and obtain Cardiology consultation with Dr. Malcolm Rivas, Diagnostic Cardiology, her licensed mortgage loan officer. 4. Thrombocytopenia, apparently a new finding. Continue to monitor as her platelets were within normal limits before. Consider to hold Plaquenil at this moment. 5. Endocrinologic problem with:. a. Diabetes type 2, insulin dependent with complications. Continue Levemir, long-acting insulin and sliding scale, diabetic education and check a hemoglobin A1c. b. Hyperlipidemia, mixed type. We are going to continue statin and low cholesterol diet. 6. GI problem or inflammatory bowel diseases with ulcerative colitis. We are going to continue the patient's medications, and we are going to use a small dose and a short course of possible IV steroids. 7. Gastroesophageal reflux disease without esophagitis. Continue dietary changes, and continue PPI and Zantac. 8. Cerebrovascular disease, status post prior cerebrovascular accidents, transient ischemic attacks, and tremors. Continue to monitor for now. 9. Oral thrush. Diflucan and nystatin, swish and swallow. 10.Chronic steroid usage. 11.Osteoarthritis, osteoporosis, deconditioning and debilitation. Continue medications and physical therapy evaluation. PROGNOSIS: Moderately good for this admission. Discussed with patient and patient's family. Questions were answered in full. Please note also the written discharge note and discharge orders and instructions. [facility]/SONY Adrienne Ellison M.D. / [id number] CC: History And Physical [address] [place]. [address] NAME: GAURANG FLORES : 46 STATUS : ADM IN [facility]#: [id number] AGE: 66 ADM/REG DATE : 07/08/16 MR#: [id number] REPORT SERV DATE: 07/08/16 DICTATED BY: ADRIENNE ELLISON DATE: 07/08/16 REPORT STATUS : Draft TRANSCRIBED BY: MODL DATE: 07/08/16 Juice Mcclellan Jr., M.D. Allan Chastain, MD Daniel Smith, M.D.
--- NOTE | ~2016-07-08 | CN ---
Consultation Report [facility] [address] [place]. [address] NAME: GAURANG FLORES : 46 STATUS : DIS IN PAT#: [id number] AGE: 66 ADM/REG DATE : 07/08/16 MR#: [id number] REPORT SERV DATE: 07/15/16 DICTATED BY: JASMIN MARX DATE: 07/15/16 REPORT STATUS : Draft TRANSCRIBED BY: MODL DATE: 07/15/16 DATE OF CONSULTATION: ADDENDUM: CRITICAL CARE ADDITIONAL DOCUMENTATION This is an addendum to my daily progress note, which was read by nurse, Alexander Louis. After developing large volume aspiration event overnight and being intubated by Dr. Buckley with development of worsening septic shock. Mrs. lFores continued to decline throughout the morning and early afternoon. Her procalcitonin level was found to be 84 and on subsequent labs, her white blood cell count dropped from 9 to 3.9 to 0.4. She also had development of worsening thrombocytopenia likely secondary to sepsis with a platelet count as low as 20 this afternoon (platelets were requested from the blood bank, but she decompensated prior to their arrival). Escalation of vasopressor support including Levophed and vasopressin were in progress, and the patient was seen by Nephrology and started on CRRT after Vas-Cath placement by Dr. Cat midmorning due to minimal urine output and worsening metabolic acidosis. HIT panel was negative. She continued to desaturate despite aggressive pressure control ventilation with escalating level of PEEP and FiO2 until she was only ultimately on 100% FiO2 early in the afternoon. From a neurologic perspective, she became completely unresponsive around 1100 hours and CRRT was briefly discontinued, and she was taken down to the CT scanner for an emergent noncontrasted brain imaging to exclude intracranial hemorrhage secondary to thrombocytopenia, this again was negative, which was confirmed by Dr. Victoria. Dr. Blackwell who was consulted for her unresponsiveness. She also had an EEG, which was severely abnormal and appear to be in burst suppression despite being off all sedation since [address] Blackwell's detailed consult note for additional details. Her temp climbed to 103 midmorning and her lactate continued to rise on subsequent lab draws. She was re-evaluated by both Dr. Cortes and Dr. Calixto several times throughout the day, as well as myself. At approximately 1424 hours, she developed PEA arrest and ACLS was initiated. Please see my Code Blue documentation in separate dictation. Ultimately, Mrs. Flores after termination of Code Blue efforts at 1433 hours and her family was notified. JIMMIE/SONY Jasmin Marx MD / [id number] CC: MD Haja Young Jr., M.D.
--- NOTE | ~2016-07-08 | CN ---
Consultation Report [facility] [address] [place]. [address] NAME: GAURANG FLORES : 46 STATUS : DIS IN PAT#: [id number] AGE: 66 ADM/REG DATE : 07/08/16 MR#: [id number] REPORT SERV DATE: 07/15/16 DICTATED BY: JASMIN MARX DATE: 07/15/16 REPORT STATUS : Draft TRANSCRIBED BY: MODRobin DATE: 07/15/16 DATE OF CONSULTATION: 07/15/2016 CODE BLUE RESPONSE NOTE Code Blue was called on Gaurang Flores at 1424 hours on 07/15/2016 in CCU, bed 13. The patient was already admitted to the Critical Care Medicine Service and was being treated for profound septic shock and was already on CUSTOM STUDIO COORDINATOR and mechanical ventilation as well as vasopressor titrations. Her initial rhythm was PEA and on initial pulse check at 1426 hours after administration of 1 amp of epinephrine and an amp of calcium. ACLS was continued, and on followup, pulse check at 1420 hours, the patient was noted to be in asystole, additional epinephrine was given as well as an amp of bicarb, and compressions were continued, and she was bagged using 100% oxygen with some frothy secretions developing in the endotracheal tube. On subsequent pulse check at 1430 hours, she remained in asystole. She received another amp of epinephrine and compressions were continued, and last pulse check at 1433 hours, the patient was noted to be in persistent asystole with fixed and dilated pupils and the resuscitation team was all in agreement that in light of her profound septic shock, acute renal failure, and acute respiratory failure, preceding this Code Blue event that her prognosis for long-term recovery would be quite poor, specifically with regard to her neurologic outcome with prolonged down time. Resuscitative efforts were discontinued and her and son were notified in the waiting room, and they came to the bedside after the patient was cleaned and prepared for visitation. Time of was 1433 hours. TDS was contacted and declined. I completed the certificate and left with the patient's nurse , Luis Manuel, and home was notified by the nursing staff as well. Please see my additional dictation from today for further details of critical care provided throughout today for Ms. Flores as well as summary dictation. JIMMIE/SONY Jasmin Marx MD / [id number] CC: MD Haja Young Jr., M.D.
--- NOTE | ~2016-07-08 | DS ---
Discharge Summary [facility] [address] [place]. [address] NAME: GAURANG FLORES : 46 STATUS : ADM IN [facility]#: [id number] AGE: 66 ADM/REG DATE : 07/08/16 MR#: [id number] REPORT SERV DATE: 07/15/16 DICTATED BY: ZENY MARX DATE: 07/15/16 REPORT STATUS : Draft TRANSCRIBED BY: MODL DATE: 07/15/16 ADMISSION DATE: 07/08/2016 DISCHARGE DATE: SUMMARY ADMITTING DIAGNOSES: Included: 1. Shortness of breath with known history of obstructive sleep apnea, chronic obstructive pulmonary disease, and pulmonary fibrosis. 2. Chest pain/tightness with history of essential hypertension. 3. Acute kidney injury superimposed onto stage 2 chronic kidney disease. 4. Thrombocytopenia. 5. Insulin-dependent type 2 diabetes mellitus. 6. History of chronic steroid use secondary to irritable bowel/ulcerative colitis. DIAGNOSES AT THE TIME OF : 1. Septic shock. 2. Acute renal failure with profound metabolic acidosis. 3. Coronary artery disease (severe multivessel). 4. Acute hypoxemic respiratory failure following large volume aspiration event on 07/14/2016. HISTORY OF PRESENT ILLNESS: Please see Dr. Adrienne Corrales's detailed history and physical from 07/08/2016. Mrs. Flores was a pleasant 66-year-old lady, who presented for shortness of breath and chest pain. She was admitted to the Hospital Medicine Service and was also seen by Dr. Fowler from diagnostic cardiology and Dr. Dhaliwal from Nephrology. Please see their detailed consult notes for additional information. Ultimately, she underwent a left heart catheterization performed by Dr. Calixto, which was diagnostic of multivessel coronary artery disease and coronary artery bypass grafting was recommended. She was evaluated by Dr. Guerrero's team, but actually was found to be hypotensive and unresponsive in her room on the [address] [place] [address] unit on 07/13/2016 around 0700. A Code Blue was called, although she never actually lost her pulse and she was found to be in hypovolemic shock. Please see my detailed dictation from her transfer to the critical care unit following that event. Central line was placed. Please see that dictation performed on 07/13/2016 as well. She was transfused with packed red blood cells and treated with protamine and IV fluids with some improvement, but ultimately continued to remain hypotensive and was seen by Dr. Phipps from Vascular Surgery. He took her to the operating room for exploration and attempted repair of her presumed right femoral artery injury. After surgery, she was returned to the CCU on 07/13/2016 in the afternoon, stable on mechanical ventilation following administration of general anesthesia, and was gently diuresed and ultimately extubated (she was extubated the morning of 07/14/2016). She continued to improve throughout the day and was actually joking with her family and talking on her cell phone until later in the evening when she developed an episode of retching and subsequently became hypoxemic. She was reintubated by Dr. Buckley overnight (07/14/2016 to 07/15/2016) and subsequently developed worsening hypotension. Of note, she did have a positive UA and positive respiratory cultures over the last 24 hours. She continued to develop worsening septic shock with Discharge Summary [address] [address] NAME: GAURANG FLORES : 46 STATUS : ADM IN [facility]#: [id number] AGE: 66 ADM/REG DATE : 07/08/16 MR#: [id number] REPORT SERV DATE: 07/15/16 DICTATED BY: ZENY MARX DATE: 07/15/16 REPORT STATUS : Draft TRANSCRIBED BY: SONY DATE: 07/15/16 downward trending platelet count with negative HIT antibody panel presumed secondary to evolving sepsis. She developed worsening lactic acidosis and was started on CRRT. She continued to decline throughout the day on 07/15/2016 (see my separate dictation reviewing the events of today), and ultimately coded in the early afternoon (please see my Code Blue dictation). She at 1433 hours in CCU bed 13 with her family at the bedside following code blue event which was unsuccessful. All of the consultants participated in her care were notified and Dr. Cortes and Dr. Calixto were both present at the bedside at the time of her as well. Her and son were updated and all of their questions were answered and she was ultimately transported to the home after being declined by TTS. Please see detailed daily progress notes as well as notes from consultants and also my separate dictations in the last couple of days. JIMMIE/SONY Zeny Marx MD / [id number] CC: MD Haja Young Jr., M.D.
--- NOTE | ~2016-07-08 | CN ---
Consultation Report [facility] [address] [place]. [address] NAME: GAURANG FLORES : 46 STATUS : ADM IN PAT#: [id number] AGE: 66 ADM/REG DATE : 07/08/16 MR#: [id number] REPORT SERV DATE: 07/11/16 DICTATED BY: PAUL JAUREGUI DATE: 07/11/16 REPORT STATUS : Draft TRANSCRIBED BY: MODRobin DATE: 07/11/16 CONSULTATION DATE OF CONSULTATION: REQUESTING PHYSICIAN: Charisse Eisenberg M.D. REASON FOR CONSULTATION: Pre-cardiac catheterization evaluation. HISTORY OF PRESENT ILLNESS: This is a very pleasant, 66-year-old, female patient, followed by Dr. Lupillo Fu, at our office with baseline creatinine, it appears to be around 1.2 to 1.5 here at [facility]. The patient was admitted on 07/08/2016 with chest tightness and shortness of breath, and seen in cardiac consultation on 07/09/2016. Echocardiogram evaluation undertaken during this admission on 07/09/2016, demonstrates normal left ventricular systolic function with an estimated ejection fraction at 60%, mild diastolic dysfunction, mild aortic sclerosis with mild stenosis, moderate posterolateral loculated pericardial effusion without hemodynamic compromise. RVSP is not available on current echocardiogram evaluation. She also underwent cardiac stress test on 07/09/2016, showing no EKG changes of ischemia. Imaging demonstrating anterior, lateral and apical ischemia with an estimated EF stress at 22%, non gated. Overall noted high risk stress test due to reversible anterior, anterolateral, and apical defects with severely reduced stress EF. The patient is tentatively slated for cardiac catheterization in the morning at 07:30. We are asked to evaluate the patient to help mitigate risk for contrast-induced nephropathy as she does have chronic kidney disease. The patient is awake and alert, sitting at bedside this afternoon during evaluation. Her is present during evaluation. She denies current chest pain. She is chronically short of breath with chronic lung disease, and is in no acute distress. PAST MEDICAL HISTORY: Includes pulmonary fibrosis with chronic use of steroids; diabetes mellitus type 2; ulcerative colitis with IBS; chronic kidney disease, baseline appears to be around 1.2 to 1.5, followed by Dr. Lupillo Fu with recent followup approximately two months ago according to the patient and her . History is also positive for previous CVA x3 with vascular disease, chronic immunosuppression as above with her RA and effusion noted during this admission. ALLERGIES: SHE LISTS ALLERGIES TO SULFA ANTIBIOTICS AND TO CODEINE. ACTIVE MEDICATIONS: Include: ASA 81 mg daily, 325 mg is also noted here as daily; Lipitor 80 mg p.o. at bedtime; nose spray CARLITO at bedtime, one to two sprays; Colazal 2250 p.o. t.i.d.; Caltrate 600 mg p.o. daily; vitamin D3 4000 units at bedtime; coenzyme Q10 100 mg p.o. at bedtime; vitamin B12 1000 mcg daily; Cardizem CD 180 mg p.o. b.i.d.; Pepcid 20 mg p.o. at bedtime; Diflucan 100 mg p.o. q.24; Flonase nasal spray, two sprays each nostril; folic acid 1 mg p.o. at bedtime; Lasix; furosemide 40 mg p.o. daily; Neurontin 300 mg p.o. t.i.d.; glucosamine chondroitin one tablet p.o. b.i.d.; heparin 5000 units subcu q.8; Consultation Report [address] [place]. [address] NAME: GAURANG FLORES : 46 STATUS : ADM IN [facility]#: [id number] AGE: 66 ADM/REG DATE : 07/08/16 MR#: [id number] REPORT SERV DATE: 07/11/16 DICTATED BY: PAUL JAUREGUI DATE: 07/11/16 REPORT STATUS : Draft TRANSCRIBED BY: SONY DATE: 07/11/16 hydrochlorothiazide 12.5 mg p.o. daily; Plaquenil 400 mg daily; NovoLog via sliding scale at level 2; Cozaar 100 mg p.o. daily; Solu-Medrol 30 mg IV b.i.d. Other medications include, antiemetic, anti-pain, anti-nausea, and low blood glucose level medications. REVIEW OF SYSTEMS: Completed, please see HPI for pertinent details. SOCIAL HISTORY: No EtOH. No illicit drugs. No tobacco. FAMILY HISTORY: Does include two sisters who have had dialysis, one continues actively at this point on dialysis, a previous sister has . Her mother from complications arising from Alzheimer's. Her father is not reviewed during this consultation. PHYSICAL EXAMINATION: VITAL SIGNS: Blood pressure 147/67, temperature at 98.1, respiratory rate 18, heart rate is 70 beats per minute, she is 96% on room air, 1710 in, 2550 out. GENERAL: She is awake, alert and oriented, sitting at bedside during evaluation, in no acute distress. Chronically ill-appearing, female patient. HEENT: Normocephalic and atraumatic. Normal ocular movements. No scleral icterus. No conjunctival pallor is appreciated. NECK: Supple without thyromegaly. No JVD or mass. CHEST: Shows positive S1 and S2. No rubs or gallops. LUNGS: Diminished throughout. Nonlabored breathing. Normal lung sounds. No rhonchi or wheezes appreciated, but she does have chronic lung disease as above. GI: Examination shows positive bowel sounds in all four quadrants. No appreciable mass or tenderness. : Examination is deferred. EXTREMITIES: Show positive pulses to all four extremities. She does have approximately 2+ lower extremity edema bilaterally, primarily in her feet. NEUROLOGIC: She appears to be grossly intact. Nonfocal. SKIN: Warm, dry, and intact to visualized surfaces. No rash, lesions, or ecchymosis. She does have some bruising noted on her upper extremities bilaterally. PSYCH: She is of appropriate mood and affect. LABORATORY DATA: Pertinent laboratories and imaging to this evaluation: Electrolyte profile shows sodium 132, potassium 3.8, chloride 97, CO2 of 26, BUN 69, creatinine 1.91, reflected GFR 26 mL/minute, glucose of 232, calcium at 8.8, magnesium 2.4. CBC; white blood cell count is 7.1, RBC 3.32, hemoglobin 10.5, hematocrit 30.4, and platelets 122. IMPRESSION AND PLAN: This is a very pleasant, chronic kidney disease, appears to be baseline 1.2 to 1.5. Followed in our office by Dr. Lupillo Fu with concomitant multiple diagnosis as listed above. Now, admitted to the hospitalist service with a complaint of chest pressure and shortness of breath, with noted echocardiogram findings of EF of 60%, mild diastolic dysfunction, mild aortic sclerosis with mild stenosis, moderate posterolateral Consultation Report [facility] [address] [place]. [address] NAME: GAURANG FLORES : 46 STATUS : ADM IN PAT#: [id number] AGE: 66 ADM/REG DATE : 07/08/16 MR#: [id number] REPORT SERV DATE: 07/11/16 DICTATED BY: PAUL JAUREGUI DATE: 07/11/16 REPORT STATUS : Draft TRANSCRIBED BY: SONY DATE: 07/11/16 loculated pericardial effusion without hemodynamic compromise, and abnormal findings on cardiac stress test with tentative plans for cardiac catheterization tomorrow. Considering her current creatinine and chronic kidney disease, she is at an increased risk for contrast- induced nephropathy. This is discussed in detail with her and her who is present during evaluation today. She understands the risk which may certainly worsen her baseline creatinine up to possibly including dialysis if clinically demonstrated post cardiac catheterization. Currently, we will stop her ARB, stop her diuretic. Gently provide normal saline hydration overnight and would re-evaluate her creatinine in the morning. If her creatinine should be less than 1.9, would be amenable to cardiac catheterization with understanding of risk of contrast-induced nephropathy as above. Further modification of treatment plan may be made based on her clinical presentation, the patient's laboratory results, and further consultation with Renal attending. We appreciate consultation. We are glad to follow with you. DICTATED BY: Yung Copeland NP JR/SONY Paul Jauregui M.D. / [id number] CC: Juice Ch Jr., M.D.
--- NOTE | ~2016-07-08 | CN ---
Consultation Report [facility] [id number] [place]. [address] NAME: GAURANG FLORES : 46 STATUS : ADM IN PAT#: [id number] AGE: 66 ADM/REG DATE : 07/08/16 MR#: [id number] REPORT SERV DATE: 07/09/16 DICTATED BY: CHAD FOWLER DATE: 07/09/16 REPORT STATUS : Draft TRANSCRIBED BY: MODL DATE: 07/09/16 CONSULTATION DATE OF CONSULTATION: 07/09/2016 REASON: Chest pain and dyspnea on exertion. HISTORY OF PRESENT ILLNESS: Ms. Flores is a 66-year-old female, who is seen in our group for history of cryptogenic stroke. I have placed a loop recorder. She does not have any other significant cardiac diagnoses. She is known to have a pericardial effusion. She did have a stress test last year that was negative. She has chronic shortness of breath. She is here because she is having worsening dyspnea on exertion over baseline. This is associated with chest heaviness, that is also new for her. No palpitations or syncope. PAST MEDICAL HISTORY: 1. History of stroke. 2. Small pericardial effusion. 3. Diabetes. 4. Hyperlipidemia. 5. Hypertension. 6. Pulmonary fibrosis. 7. Chronic renal insufficiency. 8. Rheumatoid arthritis. 9. Crohn's disease. 10.Osteopenia. SOCIAL HISTORY: This is negative. She does not smoke. Family is in the room. FAMILY HISTORY: Noncontributory. HOME MEDICATIONS: Please see the list in the chart as it is several pages long. Relevant cardiac medications are diltiazem CD 180 mg daily, Lasix, hydrochlorothiazide, Hyzaar 100/12.5 mg daily, and Zocor 40 mg every night at bedtime. ALLERGIES: SHE IS ALLERGIC TO MORPHINE, KEFLEX, SULFA, CODEINE. REVIEW OF SYSTEMS: A 10 system review was asked and is negative except for noted above in history of present illness and for the following. Ms. Flores also has chronic fatigue, chronic joint pain. No new medications. She has not stopped anything recently. No cold or flu symptoms. No fevers. PHYSICAL EXAMINATION: VITAL SIGNS: Temperature 97.5, heart rate 67, blood pressure 132/65. Consultation Report [facility] [id number] [place]. [address] NAME: GAURANG FLORES : 46 STATUS : ADM IN PAT#: [id number] AGE: 66 ADM/REG DATE : 07/08/16 MR#: [id number] REPORT SERV DATE: 07/09/16 DICTATED BY: CHAD FOWLER DATE: 07/09/16 REPORT STATUS : Draft TRANSCRIBED BY: SONY DATE: 07/09/16 GENERAL: Ms. Folres is a well-developed female, in no acute distress. She is alert and oriented to person and place. HEENT: Negative. She is not dehydrated. NECK: No JVD is seen in her neck. LUNGS: Have rhonchi bilaterally. HEART: Tones are regular. There is a systolic murmur. ABDOMEN: The abdominal exam is negative. She has good bowel sounds. EXTREMITIES: Does not show edema. She does have chronic arthritic changes in both hands. NEUROLOGICAL: She moves all four extremities. Normal speech. SKIN: Shows a lot of bruising. No rash. LABORATORY DATA: White blood cell count 5, hematocrit 34.5, platelet count 119. Sodium 140, potassium 3.5, BUN 44, creatinine is 1.4. Cardiac enzymes are negative. Liver function tests are basically negative. Her free T4 is 0.54 with a TSH of 0.48. Electrocardiogram shows sinus rhythm and no other acute changes. There were no obvious ischemic changes noted. IMPRESSION: 1. Worsening dyspnea on exertion over baseline. 2. New chest pressure. PLAN: Ms. Flores and I and her daughter have discussed the nature of her admission. Due to her symptoms and risk factors, we agree that a cardiac workup is necessary. We will start with an echocardiogram. I do have an old one with which to compare. We also discussed stress testing. She and her daughter would like to proceed with this. Due to her orthopedic issues (arthritis), she will need a chemical nuclear stress test. I will ask [employer] to interrogate her loop recorder. If all of these above cardiac tests are negative, then no further cardiac workup is negative, and she would be okay to be discharged from my point of view. [facility]/SONY Chad Fowler M.D. / [id number] CC: Juice Mcclellan Jr., M.D.
[2016-07-08 12:34] LABS: ASCORBIC ACID (UR NOT ORDER) NEG (NEG); BILIRUBIN, URINE NEGATIVE (NEG); ER URINALYSIS TAT 0 Hrs 18 Mins; KETONE, URINE NEGATIVE (NEG); LEUKOCYTE ESTERASE(NOT OR LARGE (NEG); WBC (NOT ORDERED) (RFLEX) 3 (0-5)
[2016-07-08 12:35] LABS: NITRITE (URINE) NEG (NEG)
[2016-07-08 13:21] LABS: ER CBC TAT 0 Hrs 03 Mins; HEMATOCRIT 34.3 % (36.0-48.0); HEMOGLOBIN 11.7 g/dL (12.0-16.0); MEAN CORPUS HGB CONC 34.1 g/dL (32.0-36.0); MEAN CORPUSCULAR HEMOGLOB 31.5 pg (26.0-34.0); MEAN PLATELET VOLUME 9.2 fL (9.2-13.0); RBC DISTRIBUTION WIDTH 15.9 % (12.0-16.0); RED CELL COUNT 3.71 10/6/uL (4.0-5.6); WHITE BLOOD CELLS 6.3 10/3/uL (4.5-10.5)
[2016-07-08 13:22] LABS: MANUAL DIFF YES %; MEAN CORPUSCULAR VOLUME 92.5 fL (80-100); PLATELET COUNT 99 10/3/uL (150-400)
[~2016-07-08 13:26] MED LIST: 8 HOUR650 MG PO; ADVAIR INH; ADVAIR250 INH; ALLEGRA180 PO; APIDRA SC; ARAVA10 PO; ASA5GR PO; ASAB PO; ASACOL HD800 MG PO; ASACOL PO; ASTELIN NAS; AYGESTIN5 MG PO; BALSALAZIDE750 MG PO; BENICAR20 PO; BONIVA150 MG PO; BREO ELLIPTA INH; CALTRA600D PO; CARDCD180 PO; CARDU2 PO; CENTRUM TAB1 TAB PO; CHONDROITIN PO; CO Q-10 OTC PO; CO Q-10100 MG PO; COLAZAL 750 MG750 MG PO; COLAZAL750 MG PO; COQ10100 MG PO; COSAMIN DS1 TAB PO; CRESTOR10 PO; CURCUMIN PO; CYANO1000T PO; FISH OIL1200 MG PO; FISH OIL300 MG PO; FLONASE NAS; FLOVENT DISK50 MCG INH; FOLIC PO; FOSAMAX70 MG PO; GLUCOSAMINEPO PO; HUMULIN N1 ML SC; HUMULIN R1 ML SC; HYOMAX-FT0.125 MG PO; HYZAAR1 TAB PO; INCRUSE ELLIPTA 62.5 INH; INSNOVN; INSULIN GLULISINE; KLOR-CON 1010 MEQ PO; KLOR-CON M1010 MEQ PO; L20 PO; LEVEMIR SC; LIBRAX PO; LIPITOR80 MG PO; MCZ25 PO; MEMORY VITAMIN PO; METPAKSF PO; MINIVELLE PATCH TOP; MINIVELLE TOP; MIRALAXPKT PO; MULTIPLE VIT PO; MULTIVIT/MIN PO; NEUR300 PO; NEXIUM40 PO; NORV5 PO; OPTIFLEX C PO; ORENCIA; OSTEO BI-FLEX1 EACH; OTC FISH OIL PO; OTC PROBIOTIC PO; P10 PO; P5 PO; PLAQ200B PO; PREV30 PO; PROBBIOTIC PO; PROTONIX PO; RANITIDINE300 MG PO; SPIRO25 PO; SPIRO50 PO; TEARS NATURA OPH; TURMERIC PO; TURMERIC/CURCUMIN PO; TYLENOL ARTH650 MG PO; TYLENOL OTC PO; ULTRAM50 PO; UMECLIDINIUM; VENTOLIN HFA INH; VERAMYST27.5 MCG NAS; VITAMIN B PO; VITAMIN D31000 UNIT PO; VIVELLE SY0.05 MG/24 TOP; VIVELLE0.05 MG TD; VOLTAREN1 % TOP; VYTORIN 10/20 T1 TAB PO; ZOCOR40 PO; ZYRTEC ALLGY10 MG PO; [UNRECOGNIZED DRUG - CODE] PO; [UNRECOGNIZED DRUG - CODE] PO; [UNRECOGNIZED DRUG - OTHER] PO; [UNRECOGNIZED DRUG - OTHER] PO; [UNRECOGNIZED DRUG - OTHER] PO
[2016-07-08 13:28] LABS: INTERNATIONAL NORMAL RATI 1.1 UNITS (-); PROTIME (NOT ORD) 13.8 SEC (12.0-14.5)
[2016-07-08 13:29] LABS: PARTIAL THROMBO TIME 21.2 SEC (22.5-37.2)
[2016-07-08 13:40] LABS: ALKALINE PHOSPHATASE 36 U/L (45-117); CALCIUM, SERUM 9.2 MG/DL (8.5-10.4); CHEST PAIN PROFILE TAT 0 Hrs 22 Mins; CHLORIDE, SERUM 101 MMOL/L (96-112); CO2 (CARBON DIOXIDE) 33 MMOL/L (24-34); CREATININE 1.48 MG/DL (0.55-1.02); DIRECT BILIRUBIN 0.2 MG/DL (0.0-0.4); GFR AFRICAN AMERICAN 42 ML/MIN (>=60); GFR NON AFRICAN AMERICAN 36 ML/MIN (>=60); INDIRECT BILIRUBIN(NOT ORDER) 0.5 MG/DL (0.1-0.9); POTASSIUM, SERUM 3.6 MMOL/L (3.5-5.3); SGOT(AST) 40 U/L (5-40); SGPT(ALT) 57 U/L (5-65); SODIUM, SERUM 139 MMOL/L (135-148); TOTAL BILIRUBIN 0.7 MG/DL (0-1.2); TOTAL PROTEIN 5.9 G/DL (6.0-8.5); TROPONIN I <0.02 NG/ML (<0.05)
[2016-07-08 13:41] LABS: ALBUMIN 3.8 G/DL (3.5-5.0); BUN (BLOOD UREA NITROGEN) 47 MG/DL (6-23); GLUCOSE, SERUM 145 MG/DL (60-99)
[2016-07-08 13:48] LABS: BAND NEUTROPHILS 7 %; ELLIPTOCYTES 1+ (3-10/OIF) (0-2/OIF); ER DIFF TAT 0 Hrs 30 Mins; LYMPHOCYTES 9 %; LYMPHOCYTES ABSOLUTE (CALC) 0.57 10/3/uL (0.67-4.30); METAMYELOCYTES 2 %; MONOCYTES 5 %; MONOCYTES ABSOLUTE (CALC) 0.32 10/3/uL (0.21-1.20); NEUTROPHILS ABSOLUTE (CALC) 5.42 10/3/uL (2.02-8.40); PLATELET ESTIMATE DEC (ADEQUATE); SEGMENTED NEUTROPHIL (0) 77 %; TEARDROP SHAPED RBCS OCC (0-2/OIF); TOTAL NUCLEATED CELLS 100
[2016-07-08] MEDS ORDERED: PROTONIX PO (14:34)
[2016-07-08] MEDS ORDERED: COLAZAL 750 MG750 MG PO (14:34)
[2016-07-08] MEDS ORDERED: ZANTAC300 MG PO (14:35)
[2016-07-08] MEDS ORDERED: SIMETHICONE PO (14:35)
[2016-07-08] MEDS ORDERED: IBGARD PO (14:36)
[2016-07-08] MEDS ORDERED: PROBIOTIC CAPSULE PO (14:37)
[2016-07-08] MEDS ORDERED: ZOCOR40 PO (14:38)
[2016-07-08] MEDS ORDERED: INSNOVN SC (14:38)
[2016-07-08] MEDS ORDERED: FOSAMAX70 MG PO (14:39)
[2016-07-08] MEDS ORDERED: HYZAAR1 TAB PO (14:39)
[2016-07-08] MEDS ORDERED: INSNOVR SC (14:39)
[2016-07-08] MEDS ORDERED: NEUR300 PO (14:39)
[2016-07-08] MEDS ORDERED: P10 PO (14:40)
[2016-07-08] MEDS ORDERED: PLAQ200B PO (14:40)
[2016-07-08] MEDS ORDERED: VITAMIN D2000 UNIT PO (14:40)
[2016-07-08] MEDS ORDERED: VOLTAREN1 % TOP (14:41)
[2016-07-08] MEDS ORDERED: [UNRECOGNIZED DRUG - OTHER] PO (14:41)
[2016-07-08] MEDS ORDERED: ULTRAM50 PO (14:41)
[2016-07-08] MEDS ORDERED: VENTOLIN HFA INH (14:42)
[2016-07-08] MEDS ORDERED: ADVAIR INH (14:42)
[2016-07-08] MEDS ORDERED: INCRUSE ELLI62.5 MCG INH (14:42)
[2016-07-08] MEDS ORDERED: OPTIFLEX C PO (14:42)
[2016-07-08] MEDS ORDERED: FLONASE NAS (14:43)
[2016-07-08] MEDS ORDERED: CYANO1000T PO (14:44)
[2016-07-08] MEDS ORDERED: FOLIC PO (14:44)
[2016-07-08] MEDS ORDERED: ASTEPRO0.15 % NAS (14:44)
[2016-07-08] MEDS ORDERED: CARDCD180 PO (14:45)
[2016-07-08] MEDS ORDERED: ASAB PO (14:45)
[2016-07-08] MEDS ORDERED: SUPER B COMP PO (14:45)
[2016-07-08] MEDS ORDERED: CALTRA600D PO (14:46)
[2016-07-08] MEDS ORDERED: HCTZ12.5 PO (14:46)
[2016-07-08] MEDS ORDERED: L80 PO (14:46)
[2016-07-08] MEDS ORDERED: MULTIVITAMI1 PO (14:46)
[2016-07-08] MEDS ORDERED: CO Q-10100 MG PO (14:46)
[2016-07-08] MEDS ORDERED: FISH-EPA1000 MG PO (14:46)
[2016-07-08] MEDS ORDERED: ALLEGRA180 PO (14:47)
[2016-07-08] MEDS ORDERED: RITUXAN IV (14:54)
[2016-07-08 21:56] LABS: FREE T4 0.54 NG/DL (0.76-1.46); TROPONIN I <0.02 NG/ML (<0.05)
[2016-07-08 21:58] LABS: CK-MB 1.9 NG/ML; CPK 68 U/L (0-200)
[2016-07-08 22:27] LABS: PROCALCITONIN 0.06 ng/mL (<0.5)
[2016-07-09 04:55] LABS: HEMATOCRIT 34.5 % (36.0-48.0); HEMOGLOBIN 11.5 g/dL (12.0-16.0); MEAN CORPUS HGB CONC 33.3 g/dL (32.0-36.0); MEAN CORPUSCULAR HEMOGLOB 31.1 pg (26.0-34.0); MEAN CORPUSCULAR VOLUME 93.2 fL (80-100); MEAN PLATELET VOLUME 9.8 fL (9.2-13.0); PLATELET COUNT 119 10/3/uL (150-400); RBC DISTRIBUTION WIDTH 15.8 % (12.0-16.0); WHITE BLOOD CELLS 5.2 10/3/uL (4.5-10.5)
[2016-07-09 04:57] LABS: MANUAL DIFF YES %
[2016-07-09 05:17] LABS: ALBUMIN 3.6 G/DL (3.5-5.0); BUN (BLOOD UREA NITROGEN) 44 MG/DL (6-23); CALCIUM, SERUM 9.5 MG/DL (8.5-10.4); CHLORIDE, SERUM 100 MMOL/L (96-112); CO2 (CARBON DIOXIDE) 29 MMOL/L (24-34); CPK 62 U/L (0-200); CREATININE 1.39 MG/DL (0.55-1.02); GFR AFRICAN AMERICAN 45 ML/MIN (>=60); GFR NON AFRICAN AMERICAN 39 ML/MIN (>=60); PHOSPHORUS, SERUM 2.8 MG/DL (2.5-4.5); POTASSIUM, SERUM 3.5 MMOL/L (3.5-5.3); SODIUM, SERUM 140 MMOL/L (135-148); TROPONIN I <0.02 NG/ML (<0.05)
[2016-07-09 05:18] LABS: CK-MB 1.3 NG/ML; GLUCOSE, SERUM 223 MG/DL (60-99)
[2016-07-09 07:32] LABS: BAND NEUTROPHILS 5 %; LYMPHOCYTES 1 %; LYMPHOCYTES ABSOLUTE (CALC) 0.05 10/3/uL (0.67-4.30); METAMYELOCYTES 2 %; NEUTROPHILS ABSOLUTE (CALC) 5.04 10/3/uL (2.02-8.40); PLATELET ESTIMATE SLT DEC (ADEQUATE); SEGMENTED NEUTROPHIL (0) 92 %; TOTAL NUCLEATED CELLS 100
[2016-07-09 07:33] LABS: RBC MORPHOLOGY NORM (NORMAL)
[2016-07-10 05:30] LABS: CALCIUM, SERUM 9.3 MG/DL (8.5-10.4); CHLORIDE, SERUM 98 MMOL/L (96-112); CO2 (CARBON DIOXIDE) 30 MMOL/L (24-34); CREATININE 1.61 MG/DL (0.55-1.02); GFR AFRICAN AMERICAN 38 ML/MIN (>=60); GFR NON AFRICAN AMERICAN 33 ML/MIN (>=60); GLUCOSE, SERUM 206 MG/DL (60-99); POTASSIUM, SERUM 3.3 MMOL/L (3.5-5.3); SODIUM, SERUM 137 MMOL/L (135-148)
[2016-07-10 05:32] LABS: BUN (BLOOD UREA NITROGEN) 55 MG/DL (6-23)
[2016-07-11 04:50] LABS: HEMOGLOBIN 10.5 g/dL (12.0-16.0); MEAN CORPUS HGB CONC 34.5 g/dL (32.0-36.0); MEAN CORPUSCULAR HEMOGLOB 31.6 pg (26.0-34.0); MEAN CORPUSCULAR VOLUME 91.6 fL (80-100); MEAN PLATELET VOLUME 9.5 fL (9.2-13.0); PLATELET COUNT 122 10/3/uL (150-400); RBC DISTRIBUTION WIDTH 15.7 % (12.0-16.0); RED CELL COUNT 3.32 10/6/uL (4.0-5.6); WHITE BLOOD CELLS 7.1 10/3/uL (4.5-10.5)
[2016-07-11 04:54] LABS: HEMATOCRIT 30.4 % (36.0-48.0); MANUAL DIFF YES %
[2016-07-11 05:02] LABS: CALCIUM, SERUM 8.8 MG/DL (8.5-10.4); CHLORIDE, SERUM 97 MMOL/L (96-112); CO2 (CARBON DIOXIDE) 26 MMOL/L (24-34); CREATININE 1.91 MG/DL (0.55-1.02); GFR AFRICAN AMERICAN 31 ML/MIN (>=60); GFR NON AFRICAN AMERICAN 26 ML/MIN (>=60); GLUCOSE, SERUM 232 MG/DL (60-99); POTASSIUM, SERUM 3.8 MMOL/L (3.5-5.3); SODIUM, SERUM 132 MMOL/L (135-148)
[2016-07-11 05:09] LABS: BUN (BLOOD UREA NITROGEN) 69 MG/DL (6-23)
[2016-07-11 06:36] LABS: BAND NEUTROPHILS 2 %; BASOPHILS 1 %; BASOPHILS ABSOLUTE (CALC) 0.07 10/3/uL (0.0-0.16); EOSINOPHILS 1 %; EOSINOPHILS ABSOLUTE (CALC) 0.07 10/3/uL (0.0-0.53); IMMATURE GRANS ABSOLUTE (CALC) 0.21 10/3/uL (0.0-0.11); LYMPHOCYTES 5 %; LYMPHOCYTES ABSOLUTE (CALC) 0.36 10/3/uL (0.67-4.30); METAMYELOCYTES 3 %; MONOCYTES 6 %; MONOCYTES ABSOLUTE (CALC) 0.43 10/3/uL (0.21-1.20); NEUTROPHILS ABSOLUTE (CALC) 5.96 10/3/uL (2.02-8.40); PLATELET ESTIMATE SLT DEC (ADEQUATE); POLYCHROMASIA 1+ (2-5/OIF) (0-1/OIF); SEGMENTED NEUTROPHIL (0) 82 %; TEARDROP SHAPED RBCS OCC (0-2/OIF); TOTAL NUCLEATED CELLS 100; TOXIC GRANULATION SLT
[2016-07-11 19:20] LABS: ASCORBIC ACID (UR NOT ORDER) NEG (NEG); BILIRUBIN, URINE NEGATIVE (NEG); KETONE, URINE NEGATIVE (NEG); LEUKOCYTE ESTERASE(NOT OR LARGE (NEG); WBC (NOT ORDERED) (RFLEX) 9 (0-5)
[2016-07-12 04:21] LABS: HEMATOCRIT 28.9 % (36.0-48.0); HEMOGLOBIN 10.2 g/dL (12.0-16.0); MEAN CORPUS HGB CONC 35.3 g/dL (32.0-36.0); MEAN CORPUSCULAR VOLUME 90.6 fL (80-100); MEAN PLATELET VOLUME 9.6 fL (9.2-13.0); PLATELET COUNT 121 10/3/uL (150-400); RBC DISTRIBUTION WIDTH 15.6 % (12.0-16.0); RED CELL COUNT 3.19 10/6/uL (4.0-5.6); WHITE BLOOD CELLS 6.2 10/3/uL (4.5-10.5)
[2016-07-12 04:22] LABS: INTERNATIONAL NORMAL RATI 1.1 UNITS (-); PROTIME (NOT ORD) 14.4 SEC (12.0-14.5)
[2016-07-12 04:25] LABS: MANUAL DIFF YES %
[2016-07-12 04:35] LABS: ALBUMIN 3.1 G/DL (3.5-5.0); BUN (BLOOD UREA NITROGEN) 66 MG/DL (6-23); CALCIUM, SERUM 8.3 MG/DL (8.5-10.4); CHLORIDE, SERUM 99 MMOL/L (96-112); CHOL/HDL RATIO(NOT ORDER) 3.6 (0-5); CHOLESTEROL 222 MG/DL (< 200); CO2 (CARBON DIOXIDE) 23 MMOL/L (24-34); GFR AFRICAN AMERICAN 41 ML/MIN (>=60); GFR NON AFRICAN AMERICAN 35 ML/MIN (>=60); GLUCOSE, SERUM 217 MG/DL (60-99); HDL CHOLESTEROL 62 MG/DL (> 49); LDL CHOLESTEROL 107 MG/DL (< 130); NON-HDL CHOLESTEROL 160 MG/DL (< 160); PHOSPHORUS, SERUM 3.1 MG/DL (2.5-4.5); POTASSIUM, SERUM 3.6 MMOL/L (3.5-5.3); SODIUM, SERUM 134 MMOL/L (135-148); TRIGLYCERIDE 265 MG/DL (< 150)
[2016-07-12 04:45] LABS: BAND NEUTROPHILS 2 %; IMMATURE GRANS ABSOLUTE (CALC) 0.12 10/3/uL (0.0-0.11); LYMPHOCYTES 4 %; LYMPHOCYTES ABSOLUTE (CALC) 0.25 10/3/uL (0.67-4.30); METAMYELOCYTES 2 %; MONOCYTES 3 %; MONOCYTES ABSOLUTE (CALC) 0.19 10/3/uL (0.21-1.20); NEUTROPHILS ABSOLUTE (CALC) 5.64 10/3/uL (2.02-8.40); SEGMENTED NEUTROPHIL (0) 89 %; TOTAL NUCLEATED CELLS 100
[2016-07-12 04:46] LABS: PLATELET ESTIMATE SLT DEC (ADEQUATE); RBC MORPHOLOGY NORM (NORMAL)
[2016-07-13 06:49] LABS: HEMATOCRIT 30.1 % (36.0-48.0); MANUAL DIFF YES %; MEAN CORPUS HGB CONC 33.2 g/dL (32.0-36.0); MEAN CORPUSCULAR HEMOGLOB 31.2 pg (26.0-34.0); MEAN CORPUSCULAR VOLUME 93.8 fL (80-100); MEAN PLATELET VOLUME 9.6 fL (9.2-13.0); PLATELET COUNT 176 10/3/uL (150-400); RBC DISTRIBUTION WIDTH 15.7 % (12.0-16.0); RED CELL COUNT 3.21 10/6/uL (4.0-5.6); WHITE BLOOD CELLS 7.8 10/3/uL (4.5-10.5)
[2016-07-13 06:56] LABS: INTERNATIONAL NORMAL RATI 1.4 UNITS (-)
[2016-07-13 06:57] LABS: PROTIME (NOT ORD) 16.7 SEC (12.0-14.5)
[2016-07-13 07:03] LABS: BUN (BLOOD UREA NITROGEN) 55 MG/DL (6-23); CALCIUM, SERUM 8.4 MG/DL (8.5-10.4); CHLORIDE, SERUM 106 MMOL/L (96-112); CO2 (CARBON DIOXIDE) 23 MMOL/L (24-34); GFR AFRICAN AMERICAN 45 ML/MIN (>=60); GFR NON AFRICAN AMERICAN 39 ML/MIN (>=60); GLUCOSE, SERUM 335 MG/DL (60-99); POTASSIUM, SERUM 4.5 MMOL/L (3.5-5.3); SODIUM, SERUM 139 MMOL/L (135-148)
[2016-07-13 07:13] LABS: PARTIAL THROMBO TIME > 150.0 SEC (22.5-37.2)
[2016-07-13 07:27] LABS: BAND NEUTROPHILS 11 %; IMMATURE GRANS ABSOLUTE (CALC) 0.08 10/3/uL (0.0-0.11); LYMPHOCYTES 10 %; LYMPHOCYTES ABSOLUTE (CALC) 0.78 10/3/uL (0.67-4.30); METAMYELOCYTES 1 %; MONOCYTES 5 %; MONOCYTES ABSOLUTE (CALC) 0.39 10/3/uL (0.21-1.20); NEUTROPHILS ABSOLUTE (CALC) 6.55 10/3/uL (2.02-8.40); PLATELET ESTIMATE ADQ (ADEQUATE); POLYCHROMASIA 1+ (2-5/OIF) (0-1/OIF); SEGMENTED NEUTROPHIL (0) 73 %; TOTAL NUCLEATED CELLS 100
[2016-07-13 07:48] LABS: HEMATOCRIT 21.2 % (36.0-48.0); HEMOGLOBIN 7.3 g/dL (12.0-16.0); MANUAL DIFF YES %; MEAN CORPUS HGB CONC 34.4 g/dL (32.0-36.0); MEAN CORPUSCULAR HEMOGLOB 32.2 pg (26.0-34.0); MEAN CORPUSCULAR VOLUME 93.4 fL (80-100); MEAN PLATELET VOLUME 9.7 fL (9.2-13.0); NUCLEATED RED BLOOD CELLS 1.8 /100WBC (0-0); PLATELET COUNT 149 10/3/uL (150-400); RBC DISTRIBUTION WIDTH 15.8 % (12.0-16.0); RED CELL COUNT 2.27 10/6/uL (4.0-5.6); WHITE BLOOD CELLS 6.8 10/3/uL (4.5-10.5)
[2016-07-13 07:49] LABS: INTERNATIONAL NORMAL RATI 1.5 UNITS (-); PROTIME (NOT ORD) 18.4 SEC (12.0-14.5)
[2016-07-13 07:51] LABS: PARTIAL THROMBO TIME 139.1 SEC (22.5-37.2)
[2016-07-13 07:57] LABS: ALKALINE PHOSPHATASE 34 U/L (45-117); CHLORIDE, SERUM 108 MMOL/L (96-112); CO2 (CARBON DIOXIDE) 27 MMOL/L (24-34); CREATININE 1.52 MG/DL (0.55-1.02); GFR AFRICAN AMERICAN 40 ML/MIN (>=60); GFR NON AFRICAN AMERICAN 35 ML/MIN (>=60); PHOSPHORUS, SERUM 3.8 MG/DL (2.5-4.5); POTASSIUM, SERUM 4.4 MMOL/L (3.5-5.3); SGOT(AST) 190 U/L (5-40); SGPT(ALT) 55 U/L (5-65); SODIUM, SERUM 144 MMOL/L (135-148); TOTAL BILIRUBIN 0.6 MG/DL (0-1.2)
[2016-07-13 07:58] LABS: A/G RATIO 1.4 (0.7-1.9); BUN (BLOOD UREA NITROGEN) 51 MG/DL (6-23); CALCIUM, SERUM 7.2 MG/DL (8.5-10.4); GLOBULIN 1.4 G/DL (2.5-4.1); GLUCOSE, SERUM 405 MG/DL (60-99); TOTAL PROTEIN 3.4 G/DL (6.0-8.5)
[2016-07-13 08:00] LABS: CK-MB 1.3 NG/ML; CPK 56 U/L (0-200); TROPONIN I 0.03 NG/ML (<0.05)
[2016-07-13 08:15] LABS: BAND NEUTROPHILS 1 %; IMMATURE GRANS ABSOLUTE (CALC) 0.07 10/3/uL (0.0-0.11); LYMPHOCYTES 8 %; LYMPHOCYTES ABSOLUTE (CALC) 0.54 10/3/uL (0.67-4.30); METAMYELOCYTES 1 %; MONOCYTES 2 %; MONOCYTES ABSOLUTE (CALC) 0.14 10/3/uL (0.21-1.20); NEUTROPHILS ABSOLUTE (CALC) 6.05 10/3/uL (2.02-8.40); PLATELET ESTIMATE SLT DEC (ADEQUATE); RBC MORPHOLOGY NORM (NORMAL); SEGMENTED NEUTROPHIL (0) 88 %; TOTAL NUCLEATED CELLS 100
[2016-07-13 09:18] LABS: CK-MB 1.1 NG/ML; CPK 49 U/L (0-200); TROPONIN I 0.04 NG/ML (<0.05)
[2016-07-13 13:52] LABS: MEAN CORPUS HGB CONC 35.2 g/dL (32.0-36.0); MEAN CORPUSCULAR HEMOGLOB 30.4 pg (26.0-34.0); MEAN PLATELET VOLUME 9.7 fL (9.2-13.0); RBC DISTRIBUTION WIDTH 14.9 % (12.0-16.0); WHITE BLOOD CELLS 7.3 10/3/uL (4.5-10.5)
[2016-07-13 13:53] LABS: HEMATOCRIT 38.4 % (36.0-48.0); HEMOGLOBIN 13.5 g/dL (12.0-16.0); MEAN CORPUSCULAR VOLUME 86.5 fL (80-100); PLATELET COUNT 66 10/3/uL (150-400); RED CELL COUNT 4.44 10/6/uL (4.0-5.6)
[2016-07-13 13:55] LABS: CARBOXYHEMOGLOBIN 0.3 % (0-3); HCO3 (ACTUAL BICARBONATE) 20.8 MEQ/L (23-27); HEMOBLOGIN CONTENT 13.8 G/DL (12-16); INSTRUMENT SERIAL # 8083; METHEMOGLOBIN 0.3 % (0-3); O2 CONTENT 19.9 VOL% (18-24); PCO2 (CO2 TENSION) 30 MMHG (35-45); PO2 (O2 TENSION) 319 MMHG (79-93); SAMPLE Arterial; TIDAL VOLUME 500 ML; pH 7.45 (7.37-7.43)
[2016-07-13 13:55] LABS: MANUAL DIFF YES %
[2016-07-13 14:13] LABS: BAND NEUTROPHILS 5 %; IMMATURE GRANS ABSOLUTE (CALC) 0.15 10/3/uL (0.0-0.11); LYMPHOCYTES 13 %; LYMPHOCYTES ABSOLUTE (CALC) 0.95 10/3/uL (0.67-4.30); METAMYELOCYTES 2 %; MONOCYTES 2 %; MONOCYTES ABSOLUTE (CALC) 0.15 10/3/uL (0.21-1.20); NEUTROPHILS ABSOLUTE (CALC) 6.06 10/3/uL (2.02-8.40); SEGMENTED NEUTROPHIL (0) 78 %; TOTAL NUCLEATED CELLS 100
[2016-07-13 14:14] LABS: PLATELET ESTIMATE DEC (ADEQUATE); RBC MORPHOLOGY NORM (NORMAL); SMUDGE CELLS RARE
[2016-07-13 15:47] LABS: INTERNATIONAL NORMAL RATI 1.3 UNITS (-); PARTIAL THROMBO TIME 33.9 SEC (22.5-37.2); PROTIME (NOT ORD) 16.4 SEC (12.0-14.5)
[2016-07-13 17:21] LABS: HEMOGLOBIN 12.4 g/dL (12.0-16.0); MEAN CORPUS HGB CONC 35.4 g/dL (32.0-36.0); MEAN CORPUSCULAR HEMOGLOB 30.5 pg (26.0-34.0); MEAN PLATELET VOLUME 9.8 fL (9.2-13.0); PLATELET COUNT 64 10/3/uL (150-400); RBC DISTRIBUTION WIDTH 15.7 % (12.0-16.0); RED CELL COUNT 4.07 10/6/uL (4.0-5.6); WHITE BLOOD CELLS 7.5 10/3/uL (4.5-10.5)
[2016-07-13 17:23] LABS: MANUAL DIFF YES %
[2016-07-13 17:33] LABS: ALBUMIN 2.2 G/DL (3.5-5.0); CHLORIDE, SERUM 115 MMOL/L (96-112); CO2 (CARBON DIOXIDE) 25 MMOL/L (24-34); SODIUM, SERUM 147 MMOL/L (135-148)
[2016-07-13 17:34] LABS: BUN (BLOOD UREA NITROGEN) 43 MG/DL (6-23); CALCIUM, SERUM 6.7 MG/DL (8.5-10.4); CREATININE 1.02 MG/DL (0.55-1.02); GFR AFRICAN AMERICAN 65 ML/MIN (>=60); GFR NON AFRICAN AMERICAN 56 ML/MIN (>=60); GLUCOSE, SERUM 225 MG/DL (60-99); PHOSPHORUS, SERUM 2.3 MG/DL (2.5-4.5)
[2016-07-13 18:08] LABS: BAND NEUTROPHILS 17 %; IMMATURE GRANS ABSOLUTE (CALC) 0.38 10/3/uL (0.0-0.11); LYMPHOCYTES 1 %; LYMPHOCYTES ABSOLUTE (CALC) 0.08 10/3/uL (0.67-4.30); METAMYELOCYTES 4 %; MONOCYTES 3 %; MONOCYTES ABSOLUTE (CALC) 0.23 10/3/uL (0.21-1.20); MYELOCYTES 1 %; NEUTROPHILS ABSOLUTE (CALC) 6.83 10/3/uL (2.02-8.40); PLATELET ESTIMATE DEC (ADEQUATE); SEGMENTED NEUTROPHIL (0) 74 %; TOTAL NUCLEATED CELLS 100
[2016-07-13 18:09] LABS: POIKILOCYTOSIS 1+ (5-10/OIF) (0-5/OIF)
[2016-07-13 22:48] LABS: HEMATOCRIT 33.7 % (36.0-48.0); MEAN CORPUS HGB CONC 35.6 g/dL (32.0-36.0); MEAN CORPUSCULAR HEMOGLOB 30.5 pg (26.0-34.0); MEAN CORPUSCULAR VOLUME 85.8 fL (80-100); MEAN PLATELET VOLUME 10.1 fL (9.2-13.0); PLATELET COUNT 64 10/3/uL (150-400); RBC DISTRIBUTION WIDTH 16.3 % (12.0-16.0); RED CELL COUNT 3.93 10/6/uL (4.0-5.6); WHITE BLOOD CELLS 7.7 10/3/uL (4.5-10.5)
[2016-07-13 22:49] LABS: MANUAL DIFF YES %
[2016-07-13 23:13] LABS: BAND NEUTROPHILS 12 %; IMMATURE GRANS ABSOLUTE (CALC) 0.62 10/3/uL (0.0-0.11); LYMPHOCYTES 4 %; LYMPHOCYTES ABSOLUTE (CALC) 0.31 10/3/uL (0.67-4.30); METAMYELOCYTES 6 %; MONOCYTES 2 %; MONOCYTES ABSOLUTE (CALC) 0.15 10/3/uL (0.21-1.20); MYELOCYTES 2 %; NEUTROPHILS ABSOLUTE (CALC) 6.62 10/3/uL (2.02-8.40); PLATELET ESTIMATE DEC (ADEQUATE); SEGMENTED NEUTROPHIL (0) 74 %; TARGET CELLS FEW (3-10/OIF) (0-1/OIF); TOTAL NUCLEATED CELLS 100
[2016-07-14 03:44] LABS: BE (BASE EXCESS) -0.2 MEQ/L (0 +/- 2.5); HCO3 (ACTUAL BICARBONATE) 22.9 MEQ/L (23-27); INSTRUMENT SERIAL # 35151; PCO2 (CO2 TENSION) 33 MMHG (35-45); PO2 (O2 TENSION) 102 MMHG (79-93); pH 7.46 (7.37-7.43)
[2016-07-14 03:45] LABS: CARBOXYHEMOGLOBIN 0.2 % (0-3); HEMOBLOGIN CONTENT 12.7 G/DL (12-16); METHEMOGLOBIN 0.9 % (0-3); MODE CMV; O2 CONTENT 17.3 VOL% (18-24); OPERATOR ID 31061; SAMPLE Arterial; TIDAL VOLUME 500 ML
[2016-07-14 04:34] LABS: HEMATOCRIT 34.2 % (36.0-48.0); HEMOGLOBIN 12.1 g/dL (12.0-16.0); MEAN CORPUS HGB CONC 35.4 g/dL (32.0-36.0); MEAN CORPUSCULAR HEMOGLOB 30.5 pg (26.0-34.0); MEAN CORPUSCULAR VOLUME 86.1 fL (80-100); MEAN PLATELET VOLUME 11.1 fL (9.2-13.0); PLATELET COUNT 73 10/3/uL (150-400); RBC DISTRIBUTION WIDTH 16.4 % (12.0-16.0); RED CELL COUNT 3.97 10/6/uL (4.0-5.6)
[2016-07-14 04:40] LABS: MANUAL DIFF YES %
[2016-07-14 04:55] LABS: ALBUMIN 2.3 G/DL (3.5-5.0); BUN (BLOOD UREA NITROGEN) 45 MG/DL (6-23); CHLORIDE, SERUM 113 MMOL/L (96-112); CO2 (CARBON DIOXIDE) 24 MMOL/L (24-34); GFR AFRICAN AMERICAN 60 ML/MIN (>=60); GFR NON AFRICAN AMERICAN 52 ML/MIN (>=60); GLUCOSE, SERUM 210 MG/DL (60-99); PHOSPHORUS, SERUM 2.5 MG/DL (2.5-4.5); SODIUM, SERUM 146 MMOL/L (135-148)
[2016-07-14 04:59] LABS: CALCIUM, SERUM 6.7 MG/DL (8.5-10.4); POTASSIUM, SERUM 4.4 MMOL/L (3.5-5.3)
[2016-07-14 06:36] LABS: BAND NEUTROPHILS 10 %; IMMATURE GRANS ABSOLUTE (CALC) 0.63 10/3/uL (0.0-0.11); LYMPHOCYTES 5 %; LYMPHOCYTES ABSOLUTE (CALC) 0.45 10/3/uL (0.67-4.30); METAMYELOCYTES 6 %; MONOCYTES 7 %; MONOCYTES ABSOLUTE (CALC) 0.63 10/3/uL (0.21-1.20); MYELOCYTES 1 %; NEUTROPHILS ABSOLUTE (CALC) 7.29 10/3/uL (2.02-8.40); NUCLEATED RED BLOOD CELLS 4 /100WBC (0); PLATELET ESTIMATE DEC (ADEQUATE); SEGMENTED NEUTROPHIL (0) 71 %; TOTAL NUCLEATED CELLS 100
[2016-07-14 19:30] LABS: HEMATOCRIT 32.3 % (36.0-48.0); HEMOGLOBIN 11.2 g/dL (12.0-16.0); MEAN CORPUS HGB CONC 34.7 g/dL (32.0-36.0); MEAN CORPUSCULAR HEMOGLOB 30.4 pg (26.0-34.0); MEAN CORPUSCULAR VOLUME 87.5 fL (80-100); MEAN PLATELET VOLUME 10.6 fL (9.2-13.0); PLATELET COUNT 61 10/3/uL (150-400); RBC DISTRIBUTION WIDTH 16.6 % (12.0-16.0); RED CELL COUNT 3.69 10/6/uL (4.0-5.6)
[2016-07-14 19:36] LABS: WHITE BLOOD CELLS 3.9 10/3/uL (4.5-10.5)
[2016-07-14 19:37] LABS: MANUAL DIFF YES %
[2016-07-14 19:55] LABS: BAND NEUTROPHILS 36 %; IMMATURE GRANS ABSOLUTE (CALC) 0.27 10/3/uL (0.0-0.11); LYMPHOCYTES 4 %; LYMPHOCYTES ABSOLUTE (CALC) 0.16 10/3/uL (0.67-4.30); METAMYELOCYTES 5 %; MONOCYTES 7 %; MONOCYTES ABSOLUTE (CALC) 0.27 10/3/uL (0.21-1.20); MYELOCYTES 2 %; PLATELET ESTIMATE DEC (ADEQUATE); SEGMENTED NEUTROPHIL (0) 46 %; TOTAL NUCLEATED CELLS 100
[2016-07-14 23:12] LABS: HEMATOCRIT 33.9 % (36.0-48.0); HEMOGLOBIN 11.8 g/dL (12.0-16.0)
[2016-07-15 00:29] LABS: INSTRUMENT SERIAL # 35151
[2016-07-15 00:30] LABS: BE (BASE EXCESS) -1.3 MEQ/L (0 +/- 2.5); BIPAP 16/5 cm.H2O; CARBOXYHEMOGLOBIN 0.3 % (0-3); HCO3 (ACTUAL BICARBONATE) 20.7 MEQ/L (23-27); HEMOBLOGIN CONTENT 12.1 G/DL (12-16); METHEMOGLOBIN 0.7 % (0-3); O2 CONTENT 14.2 VOL% (18-24); OPERATOR ID 13861; PCO2 (CO2 TENSION) 27 MMHG (35-45); PO2 (O2 TENSION) 47 MMHG (79-93); SAMPLE Arterial; pH 7.51 (7.37-7.43)
[2016-07-15 02:07] LABS: BE (BASE EXCESS) -0.7 MEQ/L (0 +/- 2.5); CARBOXYHEMOGLOBIN 0.2 % (0-3); HCO3 (ACTUAL BICARBONATE) 20.8 MEQ/L (23-27); HEMOBLOGIN CONTENT 11.4 G/DL (12-16); INSTRUMENT SERIAL # 35151; METHEMOGLOBIN 0.8 % (0-3); MODE PCV; O2 CONTENT 16.1 VOL% (18-24); OPERATOR ID 23712; PCO2 (CO2 TENSION) 25 MMHG (35-45); PO2 (O2 TENSION) 197 MMHG (79-93); SAMPLE Arterial; pH 7.53 (7.37-7.43)
[2016-07-15 07:27] LABS: ALBUMIN 2.2 G/DL (3.5-5.0); CHLORIDE, SERUM 113 MMOL/L (96-112); PREALBUMIN 19.8 MG/DL (17.0-43.0); SGPT(ALT) 45 U/L (5-65); SODIUM, SERUM 144 MMOL/L (135-148); TOTAL BILIRUBIN 0.8 MG/DL (0-1.2)
[2016-07-15 07:28] LABS: A/G RATIO 1.1 (0.7-1.9); ALKALINE PHOSPHATASE 46 U/L (45-117); BUN (BLOOD UREA NITROGEN) 56 MG/DL (6-23); CALCIUM, SERUM 6.8 MG/DL (8.5-10.4); CO2 (CARBON DIOXIDE) 17 MMOL/L (24-34); CREATININE 2.41 MG/DL (0.55-1.02); GFR AFRICAN AMERICAN 23 ML/MIN (>=60); GFR NON AFRICAN AMERICAN 20 ML/MIN (>=60); GLUCOSE, SERUM 125 MG/DL (60-99); PHOSPHORUS, SERUM 1.6 MG/DL (2.5-4.5); POTASSIUM, SERUM 3.5 MMOL/L (3.5-5.3); SGOT(AST) 85 U/L (5-40); TOTAL PROTEIN 4.2 G/DL (6.0-8.5)
[2016-07-15 08:16] LABS: TROPONIN I 0.29 NG/ML (<0.05)
[2016-07-15 08:25] LABS: BE (BASE EXCESS) -5.2 MEQ/L (0 +/- 2.5); CARBOXYHEMOGLOBIN 0.2 % (0-3); HCO3 (ACTUAL BICARBONATE) 19.2 MEQ/L (23-27); HEMOBLOGIN CONTENT 10.3 G/DL (12-16); INSTRUMENT SERIAL # 35151; METHEMOGLOBIN 1.2 % (0-3); MODE PCV; O2 CONTENT 13.7 VOL% (18-24); PCO2 (CO2 TENSION) 33 MMHG (35-45); PO2 (O2 TENSION) 85 MMHG (79-93); PRESSURE SUPPORT 30 cm.H2O; SAMPLE Arterial; pH 7.38 (7.37-7.43)
[2016-07-15 08:50] LABS: HEMATOCRIT 30.9 % (36.0-48.0); HEMOGLOBIN 10.2 g/dL (12.0-16.0); MEAN CORPUSCULAR HEMOGLOB 30.1 pg (26.0-34.0); MEAN PLATELET VOLUME 11.2 fL (9.2-13.0); NUCLEATED RED BLOOD CELLS 179.5 /100WBC (0-0); RBC DISTRIBUTION WIDTH 16.8 % (12.0-16.0); RED CELL COUNT 3.39 10/6/uL (4.0-5.6)
[2016-07-15 08:51] LABS: MEAN CORPUSCULAR VOLUME 91.2 fL (80-100); PLATELET COUNT 38 10/3/uL (150-400); WHITE BLOOD CELLS 0.9 10/3/uL (4.5-10.5)
[2016-07-15 08:52] LABS: MANUAL DIFF YES %
[2016-07-15 09:45] LABS: BAND NEUTROPHILS 22 %; EOSINOPHILS 2 %; EOSINOPHILS ABSOLUTE (CALC) 0.02 10/3/uL (0.0-0.53); IMMATURE GRANS ABSOLUTE (CALC) 0.16 10/3/uL (0.0-0.11); LYMPHOCYTES 26 %; LYMPHOCYTES ABSOLUTE (CALC) 0.23 10/3/uL (0.67-4.30); METAMYELOCYTES 10 %; MONOCYTES 10 %; MONOCYTES ABSOLUTE (CALC) 0.09 10/3/uL (0.21-1.20); MYELOCYTES 6 %; PROMYELOCYTES 2 % (0); SEGMENTED NEUTROPHIL (0) 22 %; TOTAL NUCLEATED CELLS 50
[2016-07-15 09:46] LABS: POLYCHROMASIA 1+ (2-5/OIF) (0-1/OIF)
[2016-07-15 09:51] LABS: HEMOGLOBIN 9.1 g/dL (12.0-16.0); MEAN CORPUSCULAR HEMOGLOB 31.2 pg (26.0-34.0); MEAN PLATELET VOLUME 12.4 fL (9.2-13.0); NUCLEATED RED BLOOD CELLS 303.1 /100WBC (0-0); RBC DISTRIBUTION WIDTH 16.8 % (12.0-16.0); RED CELL COUNT 2.92 10/6/uL (4.0-5.6)
[2016-07-15 09:52] LABS: HEMATOCRIT 25.7 % (36.0-48.0); MANUAL DIFF YES %; MEAN CORPUS HGB CONC 35.4 g/dL (32.0-36.0); PLATELET COUNT 31 10/3/uL (150-400); WHITE BLOOD CELLS 0.4 10/3/uL (4.5-10.5)
[2016-07-15 09:58] LABS: INTERNATIONAL NORMAL RATI 1.9 UNITS (-); PARTIAL THROMBO TIME 52.8 SEC (22.5-37.2)
[2016-07-15 10:00] LABS: PROTIME (NOT ORD) 21.3 SEC (12.0-14.5)
[2016-07-15 10:05] LABS: BUN (BLOOD UREA NITROGEN) 60 MG/DL (6-23); CALCIUM, SERUM 6.4 MG/DL (8.5-10.4); CHLORIDE, SERUM 108 MMOL/L (96-112); CO2 (CARBON DIOXIDE) 24 MMOL/L (24-34); CREATININE 2.66 MG/DL (0.55-1.02); GFR AFRICAN AMERICAN 21 ML/MIN (>=60); GFR NON AFRICAN AMERICAN 18 ML/MIN (>=60); GLUCOSE, SERUM 105 MG/DL (60-99); PHOSPHORUS, SERUM 2.1 MG/DL (2.5-4.5); POTASSIUM, SERUM 3.4 MMOL/L (3.5-5.3); SODIUM, SERUM 144 MMOL/L (135-148)
[2016-07-15 10:20] LABS: BAND NEUTROPHILS 20 %; EOSINOPHILS 5 %; EOSINOPHILS ABSOLUTE (CALC) 0.02 10/3/uL (0.0-0.53); LYMPHOCYTES 15 %; LYMPHOCYTES ABSOLUTE (CALC) 0.06 10/3/uL (0.67-4.30); METAMYELOCYTES 15 %; MONOCYTES 5 %; MONOCYTES ABSOLUTE (CALC) 0.02 10/3/uL (0.21-1.20); MYELOCYTES 5 %; POLYCHROMASIA 1+ (2-5/OIF) (0-1/OIF); PROMYELOCYTES 5 % (0); SEGMENTED NEUTROPHIL (0) 30 %; TOTAL NUCLEATED CELLS 20; TOXIC GRANULATION 1+; VACUOLATED NEUTROPHILES OCC
[2016-07-15 10:39] LABS: D-DIMER QUANTITATIVE 1.39 ug/mLFEU (< 0.50)
[2016-07-15 10:41] LABS: FIBRINOGEN 392 MG/DL (230-462)
[2016-07-15 11:30] LABS: PROCALCITONIN 84.26 ng/mL (<0.5)
[2016-07-15 13:30] LABS: HEPARIN-INDUCED PLATELET AB NEGATIVE (NEGATIVE); HIT PATIENT O.D. 0.004 OD (0.000-0.299)
[2016-07-15 13:46] LABS: HEMOGLOBIN 7.8 g/dL (12.0-16.0); MEAN CORPUS HGB CONC 34.5 g/dL (32.0-36.0); MEAN CORPUSCULAR HEMOGLOB 30.6 pg (26.0-34.0); MEAN CORPUSCULAR VOLUME 88.6 fL (80-100); NUCLEATED RED BLOOD CELLS 393.4 /100WBC (0-0); RBC DISTRIBUTION WIDTH 16.8 % (12.0-16.0); RED CELL COUNT 2.55 10/6/uL (4.0-5.6)
[2016-07-15 13:48] LABS: HEMATOCRIT 22.6 % (36.0-48.0); MANUAL DIFF YES %; PLATELET COUNT 20 10/3/uL (150-400); WHITE BLOOD CELLS 0.4 10/3/uL (4.5-10.5)
[2016-07-15 13:54] LABS: A/G RATIO 1.2 (0.7-1.9); ALBUMIN 1.8 G/DL (3.5-5.0); ALKALINE PHOSPHATASE 47 U/L (45-117); BUN (BLOOD UREA NITROGEN) 57 MG/DL (6-23); CALCIUM, SERUM 5.4 MG/DL (8.5-10.4); CHLORIDE, SERUM 107 MMOL/L (96-112); CO2 (CARBON DIOXIDE) 20 MMOL/L (24-34); CREATININE 2.63 MG/DL (0.55-1.02); GFR AFRICAN AMERICAN 21 ML/MIN (>=60); GFR NON AFRICAN AMERICAN 18 ML/MIN (>=60); GLOBULIN 1.5 G/DL (2.5-4.1); GLUCOSE, SERUM 56 MG/DL (60-99); SGOT(AST) 336 U/L (5-40); SGPT(ALT) 59 U/L (5-65); SODIUM, SERUM 140 MMOL/L (135-148); TOTAL BILIRUBIN 1.8 MG/DL (0-1.2); TOTAL PROTEIN 3.3 G/DL (6.0-8.5)
[2016-07-15 14:14] LABS: BAND NEUTROPHILS 8 %; GIANT PLATELET RARE; LYMPHOCYTES 72 %; LYMPHOCYTES ABSOLUTE (CALC) 0.29 10/3/uL (0.67-4.30); MONOCYTES 12 %; MONOCYTES ABSOLUTE (CALC) 0.05 10/3/uL (0.21-1.20); NEUTROPHILS ABSOLUTE (CALC) 0.06 10/3/uL (2.02-8.40); POLYCHROMASIA 2+ (5-10/OIF) (0-1/OIF); SEGMENTED NEUTROPHIL (0) 8 %; TOTAL NUCLEATED CELLS 100
== END 2016-07-15 16:43 | disposition expired | DRG 252 ==
LOC: ER 13:26 → 5NO 15:39 → CCU 07-13 06:48
PROVIDERS: Emergency Medicine; Internal Medicine; Internal Medicine Cardiovascular Disease; Internal Medicine Critical Care Medicine; Internal Medicine Nephrology; Internal Medicine Pulmonary Disease; Otolaryngology; Psychiatry & Neurology Neurology; Surgery Vascular Surgery
PROC: B2111ZZ Fluoroscopy of Multiple Coronary Arteries using Low Osmolar Contrast (ICD-10-PCS; 2016-07-12)
PROC: B2151ZZ Fluoroscopy of Left Heart using Low Osmolar Contrast (ICD-10-PCS; 2016-07-12)
PROC: 4A023N7 Measurement of Cardiac Sampling and Pressure, Left Heart, Percutaneous Approach (ICD-10-PCS; 2016-07-12)
PROC: 06HN33Z Insertion of Infusion Device into Left Femoral Vein, Percutaneous Approach (ICD-10-PCS; 2016-07-13)
PROC: 30233N1 Transfusion of Nonautologous Red Blood Cells into Peripheral Vein, Percutaneous Approach (ICD-10-PCS; 2016-07-13)
PROC: 04QK0ZZ Repair Right Femoral Artery, Open Approach (ICD-10-PCS; principal; 2016-07-13 09:15)
PROC: 5A1935Z Respiratory Ventilation, Less than 24 Consecutive Hours (ICD-10-PCS; 2016-07-15)
PROC: 0BH17EZ Insertion of Endotracheal Airway into Trachea, Via Natural or Artificial Opening (ICD-10-PCS; 2016-07-15)
PROC: 05HM33Z Insertion of Infusion Device into Right Internal Jugular Vein, Percutaneous Approach (ICD-10-PCS; 2016-07-15)
PROC: B543ZZA Ultrasonography of Right Jugular Veins, Guidance (ICD-10-PCS; 2016-07-15)
PROC: 5A12012 Performance of Cardiac Output, Single, Manual (ICD-10-PCS; 2016-07-15)
DX: I25.110 Atherosclerotic heart disease of native coronary artery with unstable angina pectoris (principal); T81.19XA Other postprocedural shock, initial encounter; J69.0 Pneumonitis due to inhalation of food and vomit; J95.821 Acute postprocedural respiratory failure; N17.9 Acute kidney failure, unspecified; A41.9 Sepsis, unspecified organism; J90 Pleural effusion, not elsewhere classified; J84.10 Pulmonary fibrosis, unspecified; T81.12XA Postprocedural septic shock, initial encounter; B37.0 Candidal stomatitis; E87.2 Acidosis; I31.3 Pericardial effusion (noninflammatory); I50.22 Chronic systolic (congestive) heart failure; D62 Acute posthemorrhagic anemia; K51.90 Ulcerative colitis, unspecified, without complications; L76.32 Postprocedural hematoma of skin and subcutaneous tissue following other procedure; T81.4XXA Infection following a procedure, initial encounter; N39.0 Urinary tract infection, site not specified; E11.22 Type 2 diabetes mellitus with diabetic chronic kidney disease; G47.33 Obstructive sleep apnea (adult) (pediatric); J44.9 Chronic obstructive pulmonary disease, unspecified; I12.9 Hypertensive chronic kidney disease with stage 1 through stage 4 chronic kidney disease, or unspecified chronic kidney disease; N18.2 Chronic kidney disease, stage 2 (mild); E78.2 Mixed hyperlipidemia; K21.9 Gastro-esophageal reflux disease without esophagitis; M19.90 Unspecified osteoarthritis, unspecified site; D69.6 Thrombocytopenia, unspecified; M81.0 Age-related osteoporosis without current pathological fracture; I35.0 Nonrheumatic aortic (valve) stenosis; K58.9 Irritable bowel syndrome, unspecified; B96.89 Other specified bacterial agents as the cause of diseases classified elsewhere; B95.62 Methicillin resistant Staphylococcus aureus infection as the cause of diseases classified elsewhere; M06.9 Rheumatoid arthritis, unspecified; Z79.52 Long term (current) use of systemic steroids; Z86.73 Personal history of transient ischemic attack (TIA), and cerebral infarction without residual deficits; Z82.49 Family history of ischemic heart disease and other diseases of the circulatory system; Z83.3 Family history of diabetes mellitus; Z79.4 Long term (current) use of insulin; Z88.5 Allergy status to narcotic agent; Z88.2 Allergy status to sulfonamides; Z88.8 Allergy status to other drugs, medicaments and biological substances; Y83.8 Other surgical procedures as the cause of abnormal reaction of the patient, or of later complication, without mention of misadventure at the time of the procedure; Y71.0 Diagnostic and monitoring cardiovascular devices associated with adverse incidents
CPT/HCPCS: 31720; 36415; 36600; 70450; 70496; 70498; 71010; 71020; 71275; 74000; 74177; 78452; 80048; 80053; 80061; 80069; 80076; 81001; 82330; 82533; 82550; 82553; 82565; 82803; 82805; 82947; 82962; 83036; 83605; 83735; 83880; 84100; 84132; 84134; 84145; 84295; 84439; 84443; 84484; 85014; 85018; 85025; 85379; 85384; 85610; 85730; 86022; 86850; 86900; 86901; 86920; 87040; 87070; 87077; 87086; 87150; 87186; 87205; 87641; 92950; 93005; 93017; 93458; 94002; 94003; 94640; 94660; 94770; 95816; 99152; 99285; A9270-GY; A9502; C1769; C1894; C8929; C9113; J0330; J0690; J1644; J2185; J2250; J2370; J2543; J2720; J2920; J2997; J3010; J3370; P9016; P9047; Q9957; Q9967